=== PATIENT | female | born 1945 | race Caucasian/White ===

== ENCOUNTER → 2023-08-16 12:10 | Outpatient (REF) | payer OTHER, MEDICARE, SELFPAY | LOC: RAD 12:10 | PROVIDERS: ATTENDING PHYSICIAN Internal Medicine | DX: R06.00 Dyspnea, unspecified (principal) | CPT/HCPCS: 71046 ==

== ENCOUNTER → 2023-09-13 13:02 | Outpatient (REF) | payer MEDICARE, OTHER, SELFPAY ==
[2023-09-13 15:56] LABS: Urine Albumin Trace (Neg - Trace); Urine Bilirubin Negative (Negative); Urine Character Slightly Cloudy (Clear); Urine Color Yellow; Urine Glucose Negative (Negative); Urine Ketone Negative (Negative); Urine Leukocyte 2+ (Negative); Urine Nitrite Negative (Negative); Urine Occult Blood Negative (Negative); Urine Specific Gravity 1.015 (<1.030); Urine Urobilinogen Negative (Neg - 1+)
[2023-09-13 16:10] LABS: Urine Amorphous Seen; Urine Squamous Cell 16-20 /LPF (Few)
== END ==
LOC: HWRAD 13:02
PROVIDERS: ATTENDING PHYSICIAN Student in an Organized Health Care Education/Training Program; FAMILY PHYSICIAN Family Medicine; OTHER PHYSICIAN Specialist; REFERRING PHYSICIAN Obstetrics & Gynecology
DX: M54.50 Low back pain, unspecified (principal); S32.010G Wedge compression fracture of first lumbar vertebra, subsequent encounter for fracture with delayed healing; M54.12 Radiculopathy, cervical region; M50.31 Other cervical disc degeneration, high cervical region; N39.0 Urinary tract infection, site not specified
CPT/HCPCS: 72125; 72131; 81003; 81015; 87086

== ENCOUNTER → 2023-09-20 10:01 | Outpatient (REF) | payer MEDICARE, OTHER, SELFPAY | LOC: CLAB 10:01 | PROVIDERS: ATTENDING PHYSICIAN Obstetrics & Gynecology | DX: N39.0 Urinary tract infection, site not specified (principal) | CPT/HCPCS: 87086 ==

== ENCOUNTER → 2023-10-21 11:44 | Outpatient (REF) | payer MEDICARE, OTHER, SELFPAY ==
[2023-10-21 13:43] LABS: % Basophils 0.3 % (0-2); % Eosinophils 0.1 % (0-6); % Immature Granulocytes 0.5 % (0-0.5); % Monocytes 8.4 % (1.7-9.3); % Neutrophils 78.7 % (42.2-75.2); Absolute Immature Granulocytes 0.1 10^3/uL (0-0.05); Absolute Lymphocytes 1.3 10^3/uL (1.2-3.4); Absolute Monocytes 0.9 10^3/uL (0.1-0.6); Absolute Neutrophils 8.5 10^3/uL (1.4-6.5); Hematocrit 39.1 % (37.0-47.0); Hemoglobin 13.6 g/dL (12.0-16.0); Mean Corp Hgb Conc. 34.8 g/dL (33.0-37.0); Mean Corpuscular Hgb 29.8 pg (27.0-31.0); Mean Corpuscular Volume 85.6 fL (81.0-99.0); Mean Platelet Volume 11.3 fL (7.4-10.4); Nucleated Red Blood Cells % 0 %; Platelet Count 225 10^3/uL (130-400); Red Blood Cell Count 4.57 10^6/uL (4.20-5.40); Red Cell Dist. Width 13.6 % (11.5-14.5); White Blood Cell Count 10.8 10^3/uL (4.8-10.8)
[2023-10-21 14:00] LABS: Microalbumin, Random Urine 3.6 mg/dl (0.6-1.7); Microalbumin/creatinine Ratio 35.9 mg/g
[2023-10-21 14:02] LABS: ALT (SGPT) 11 U/L (0-35); AST (SGOT) 20 U/L (14-36); Albumin 4.8 g/dl (3.5-5.0); Alkaline Phosphatase 78 U/L (38-126); Blood Urea Nitrogen 41 mg/dl (7-17); Calcium 10.5 mg/dl (8.4-10.2); Carbon Dioxide 25 mmol/L (22-30); Chloride 103 mmol/L (98-107); Glucose 82 mg/dl (70-99); HDL Cholesterol 59 mg/dl; LDL Cholesterol, Calculated 130 mg/dl; Potassium 4.1 mmol/L (3.5-5.1); Sodium 138 mmol/L (135-145); Total Bilirubin 0.5 mg/dl (0.2-1.3); Total Cholesterol 221 mg/dl (50-199); Total Protein 7.9 g/dl (6.3-8.2); Triglyceride 161 mg/dl (10-149); Very Low Density Lipoprotein 32 mg/dl (0-30); eGFR > 60.00
== END ==
LOC: REG 11:44
PROVIDERS: ATTENDING PHYSICIAN Nurse Practitioner Family; FAMILY PHYSICIAN Family Medicine
DX: D68.69 Other thrombophilia (principal); I48.21 Permanent atrial fibrillation; E11.69 Type 2 diabetes mellitus with other specified complication; E11.9 Type 2 diabetes mellitus without complications
CPT/HCPCS: 36415; 80053; 80061; 82043; 82570; 83036; 85025

== ENCOUNTER 2023-11-01 11:25 | Emergency (ER) | payer MEDICARE, OTHER, SELFPAY ==
[2023-11-01] VITALS (9 sets, daily range): BP systolic 105–135; BP diastolic 57–100; PULSE 77–80; BMI 33.1
[2023-11-01 13:23] LABS: % Basophils 0.5 % (0-2); % Eosinophils 1.7 % (0-6); % Immature Granulocytes 0.3 % (0-0.5); % Lymphocytes 27.5 % (20.5-51.1); % Monocytes 8.4 % (1.7-9.3); % Neutrophils 61.6 % (42.2-75.2); Absolute Eosinophils 0.1 10^3/uL (0-0.7); Absolute Lymphocytes 1.8 10^3/uL (1.2-3.4); Absolute Monocytes 0.6 10^3/uL (0.1-0.6); Hematocrit 38.3 % (37.0-47.0); Hemoglobin 13.6 g/dL (12.0-16.0); Mean Corp Hgb Conc. 35.5 g/dL (33.0-37.0); Mean Corpuscular Hgb 29.9 pg (27.0-31.0); Mean Corpuscular Volume 84.2 fL (81.0-99.0); Nucleated Red Blood Cells % 0 %; Platelet Count 212 10^3/uL (130-400); Red Blood Cell Count 4.55 10^6/uL (4.20-5.40); Red Cell Dist. Width 12.7 % (11.5-14.5); White Blood Cell Count 6.6 10^3/uL (4.8-10.8)
[2023-11-01] MEDS: ANTIVERT 25 MG PO (13:36)
[2023-11-01] MEDS: NSS 1000 IV (13:37)
--- NOTE | 2023-11-01 13:40 | ED.GENMED ---
History of Present Illness
General
Chief Complaint: Weakness
Source: patient
Time Seen by Provider: 11/01/23 13:17
Travel History
Have you had any contact with someone who has COVID-19?: No
Do you have any symptoms of coronavirus? Fever > 100 degrees, chills, cough, shortness of breath, sore throat, loss of taste or smell, muscle aches, or headache?: No
History of Present Illness
History of Present Illness:
78-year-old female with past medical history of multiple cardiac complications, chronic back pain, status post multiple rib fractures and sacral fracture from an accidental fall few months ago presenting to the emergency department for evaluation
after she started to experience hot flashes, dizziness and generally feeling unwell that started in the early evening yesterday. Patient contacted her cardiology office yesterday who recommended she come to the ER for further evaluation but patient
wanted to wait the symptoms out and notes she was able to fall asleep without any difficulty but upon awakening this morning around 8:30 AM the symptoms started again albeit much less severe. Patient states currently she still feels dizzy
describing symptoms more like vertigo and associated with a pressure-like sensation in the back of her head. She denies any chest pain, shortness of breath, palpitations, diaphoresis, exertional dyspnea orthopnea, focal weakness or numbness, visual
disturbances or any other concerns. Denies any history of similar. Of note, patient recently started Mounjaro medication for diabetes about a week and a half ago. She notes that her cardiology team told her that she should not be on this so she
has not taken it again and is wondering if this may be a side effect of that medication.
Past History
Past History
ED Past Medical History: Arrthythmia, HTN, NIDDM, Valvular disease and Other (Ulcers)
ED Past Surgical History: Appendectomy, Cardiac (TAVR, pacer), Gynecological (Hysterectomy), Orthopedic (L hip replacement.) and Other (Left breast Lumpectomy)
Social History
Tobacco: Non-smoker
Alcohol: None
Drug: None
Personal:
Living: alone
Family History
Family History: Other (Nonsig.)
Review of Systems
Review of Systems
All Other Systems: ROS reviewed and negative except as documented in HPI and ROS
Phy Exam
Physical Exam
Physical Exam:
GENERAL: Alert , in no apparent distress, however when patient did sit forward to allow me to listen to her lung mora she noted her vertigo got worse
EYE: pupils equal and reactive, 4 mm bilateral, EOMI
NECK: Supple
ENT: o/p clr, mmm.
CARDIAC: Regular rate and rhythm .
LUNGS: Clear breath sounds bilaterally, no acute respiratory distress, no wheezes/rales/rhonchi
ABDOMEN: Soft, without focal tenderness, no r/g, no cvat
NEUROLOGICAL: Alert and oriented, no focal neuro deficits, moves all extremities, no sensory deficits, no dysmetria or dysarthria
SKIN: Warm and dry, skin intact.
MUSCULOSKELETAL: No edema, well perfused.
PSYCH: Normal and appropriate interaction.
Scores
Heart Failure Risk
Heart Failure Risk Score: Not Applicable
Heart Score for Chest Pain Patients
STEMI patient?: Not applicable
Withdrawal Assessment of Alcohol
Withdrawal Assessment Completed?: Not applicable
Course
Orders/Labs/Results
Orders:
Orders
11/01/23 11:34
Electrocardiogram (*1) Urgent
Reason for Study: Chest Pain
EKG- Treatment ONCE
11/01/23 13:16
Complete Blood Count/With Diff Urgent
Comprehensive Metabolic Panel Urgent
Troponin I Urgent
11/01/23 13:30
CT Head W/o Iv Contrast Urgent
Comment:
Reason For Exam: headache, vertigo
Interrogate Pacemaker- Treatment ONCE
Orthostatic VS- Treatment ONCE
0.9% Sodium Chloride 1000 ml [Nss] 1,000 ml IV BOLUS
Meclizine [Antivert] 25 mg PO NOW STA
11/01/23 15:38
Potassium Chloride [KCl] 40 meq PO NOW STA
Abnormal Lab Results
11/01/23
13:16
MPV 11.0 H fL
(7.4-10.4)
Potassium 3.2 L mmol/L
(3.5-5.1)
BUN 43 H mg/dl
(7-17)
Creatinine 1.1 H mg/dL
(0.6-1.0)
Glucose 106 H mg/dl
(70-99)
11/01/23 13:16
11/01/23 13:16
Vital Signs
Initial and Last Documented VS:
Initial Vital Signs
Temp Pulse Resp BP Pulse Ox
97.6 F 71 20 105/71 96
11/01/23 11:29 11/01/23 11:29 11/01/23 11:29 11/01/23 11:29 11/01/23 11:29
Last Documented Vital Signs
Temp Pulse Resp BP Pulse Ox
97.6 F 75 11 116/60 96
11/01/23 11:29 11/01/23 13:00 11/01/23 13:00 11/01/23 13:00 11/01/23 11:29
MDM/Problems Addressed
Differential Diagnosis Includes:
Peripheral versus central vertigo, cardiac dysrhythmia, valvular dysfunction, electrolyte disturbance, medication side effect
MDM/Problems Addressed:
78-year-old female presenting to the emergency department for evaluation of dizziness, flushing/hot flash and generally feeling unwell since last night. Symptoms do seem to be a little less persistent today although still present. She is
hemodynamically stable although blood pressure is little bit on the lower side. Orthostasis could certainly be a cause especially given her symptoms with movement. Labs have been ordered. Will check a CT of the head, orthostatics, interrogate
pacemaker. Antivert ordered for symptomatic control as well as IV fluids. Reassessment following
Chronic conditions affecting care: DM and Arrhythmia
*Pulse Oximetry
Patient hypoxic: no
*EKG
Interpreted by ED Provider?: Yes
Comparison EKG: no changes
Heart Rate: 80
Rate: normal
Rhythm: PVC's and av sequential
*Security System Installer Interpretation
Rate: normal
Rhythm: av sequential
*Critical Care Note
Total Time (30-74mins, 75-104mins- exclusive of procedures): Not Applicable
Data Reviewed
Review of Other/Old Records Reveals: Labs and Records
Source: patient and records
Patient Management
Discussion with other providers: PCP
Escalation/DeEscalation of care consider admission/obs:
On reevaluation patient notes she is feeling better. She was given a liter of IV fluids and a p.o. dose of potassium given her potassium did come back slightly low at 3.2. BUN and creatinine were slightly elevated signifying possible dehydration
which could have also been the cause of patient's lightheadedness. I did notify her primary care provider who will help ensure close follow-up within 1 to 2 days
ED Attending Note
-
Portions of this chart may have been created with voice recognition software.� Occasional wrong word or��sound alike� substitutions may have occurred due to the inherent limitations of voice recognition software.
Discharge Plan
Departure
Patient Disposition: Home (Routine Discharge)
Date of Disposition: 11/01/23
Time of Disposition: 15:39
Patient with high blood pressure during this ER visit?: No
Discharge Problem:
Dizziness, Hypokalemia
Instructions: Vertigo (a Type of Dizziness) (DC)
Prescriptions:
No Action
gabapentin 300 mg Capsule
600 mg PO HS
metformin 500 mg Tablet
1,000 mg PO BID
famotidine [Pepcid] 20 mg Tablet
40 mg PO HS
ascorbic acid (vitamin C) [Vitamin C] 500 mg Tablet
500 mg PO DAILY
repaglinide 0.5 mg Tablet
1 mg PO BID
losartan 25 mg Tablet
25 mg PO DAILY
cholecalciferol (vitamin D3) [Vitamin D3] 25 mcg (1,000 unit) Capsule
25 mcg PO DAILY
gabapentin 300 mg Capsule
300 mg PO BID@0800,1600
hydrochlorothiazide 25 mg Tablet
25 mg PO DAILY Qty: 30 0RF
metoprolol succinate 25 mg Tablet Extended Release 24 Hr
12.5 mg PO BID Qty: 30 0RF
hydrocodone-acetaminophen 5-325 mg tablet
1 tab PO Q8H PRN (Reason: severe pain)
Patient Comments:
07/22/2023: last filled 07/12/23, 30 tabs for 10 days from [facility]
esomeprazole magnesium [Nexium] 40 mg Capsule,Delayed Release(Dr/Ec)
40 mg PO DAILY
colchicine 0.6 mg tablet
0.3 mg PO BID
Xarelto 20 mg Tablet
20 mg PO QPM Qty: 30 0RF
sennosides-docusate sodium [Stool Softener-Stimulant Laxat] 8.6-50 mg Tablet
1 tab PO DAILY Qty: 10 0RF
acetaminophen [Pain Relief ES (acetaminophen)] 500 mg Tablet
1,000 mg PO Q12 Qty: 60 0RF
cyclobenzaprine 10 mg Tablet
5 mg PO TID PRN (Reason: Muscle spasm) Qty: 10 0RF
lidocaine 4 % Adhesive Patch,Medicated
1 patch topical DAILY Qty: 30 0RF
Referrals:
Radha Taylor MD [Family Provider] -
Interventions
Interventions:
*Risk Screen - Suicide Last Done: 11/01/23 11:29
*General Assessment Last Done: 11/01/23 11:29
*Neglect/Abuse Screening Last Done: 11/01/23 11:29
ED- Cardiac Assessment Last Done: 11/01/23 13:13
ED- Neurological Assessment Last Done: 11/01/23 13:13
ED- Pulmonary Assessment Last Done: 11/01/23 13:13
Discharge Date and Time
Print Language: SLOVAK
[2023-11-01 14:14] LABS: Troponin I < 0.012 ng/ml
[2023-11-01 14:15] LABS: Blood Urea Nitrogen 43 mg/dl (7-17); Estimated Creatinine Clearance 40 ml/min; Glucose 106 mg/dl (70-99)
[2023-11-01 14:16] LABS: ALT (SGPT) 11 U/L (0-35); AST (SGOT) 23 U/L (14-36); Albumin 4.4 g/dl (3.5-5.0); Alkaline Phosphatase 87 U/L (38-126); Calcium 9.8 mg/dl (8.4-10.2); Carbon Dioxide 28 mmol/L (22-30); Chloride 101 mmol/L (98-107); Potassium 3.2 mmol/L (3.5-5.1); Sodium 138 mmol/L (135-145); Total Bilirubin 0.3 mg/dl (0.2-1.3); Total Protein 7.3 g/dl (6.3-8.2)
[2023-11-01] MEDS: KCL 40 MEQ PO (15:56)
== END 2023-11-01 16:16 | disposition home or self-care (01) ==
LOC: EMR 11:25
PROVIDERS: EMERGENCY PHYSICIAN Emergency Medicine; FAMILY PHYSICIAN Family Medicine
DX: E87.6 Hypokalemia (principal); R42 Dizziness and giddiness; M54.9 Dorsalgia, unspecified; R23.2 Flushing; E11.9 Type 2 diabetes mellitus without complications; G89.29 Other chronic pain; I10 Essential (primary) hypertension; Z95.0 Presence of cardiac pacemaker; Z96.642 Presence of left artificial hip joint; Z88.5 Allergy status to narcotic agent; Z91.040 Latex allergy status
CPT/HCPCS: 99284; 96360; 93288; 70450; 80053; 84484; 85025; 93005

== ENCOUNTER 2023-12-21 20:01 | Emergency (ER) | payer MEDICARE, OTHER, SELFPAY ==
[2023-12-21 20:08] VITALS: BP 125/84
[2023-12-21 20:30] LABS: % Basophils 0.6 % (0-2); % Eosinophils 1.9 % (0-6); % Immature Granulocytes 0.3 % (0-0.5); % Lymphocytes 23.4 % (20.5-51.1); % Monocytes 8.8 % (1.7-9.3); Absolute Basophils 0.1 10^3/uL (0-0.2); Absolute Eosinophils 0.2 10^3/uL (0-0.7); Absolute Lymphocytes 2.3 10^3/uL (1.2-3.4); Absolute Monocytes 0.9 10^3/uL (0.1-0.6); Absolute Neutrophils 6.3 10^3/uL (1.4-6.5); Hematocrit 40.8 % (37.0-47.0); Hemoglobin 14.7 g/dL (12.0-16.0); Mean Corpuscular Hgb 30.9 pg (27.0-31.0); Mean Corpuscular Volume 85.7 fL (81.0-99.0); Nucleated Red Blood Cells % 0 %; Platelet Count 199 10^3/uL (130-400); Red Blood Cell Count 4.76 10^6/uL (4.20-5.40); Red Cell Dist. Width 12.4 % (11.5-14.5); White Blood Cell Count 9.8 10^3/uL (4.8-10.8)
[2023-12-21 20:51] LABS: ALT (SGPT) < 10 U/L (0-35); AST (SGOT) 22 U/L (14-36); Albumin 4.8 g/dl (3.5-5.0); Alkaline Phosphatase 89 U/L (38-126); Blood Urea Nitrogen 41 mg/dl (7-17); Calcium 10.2 mg/dl (8.4-10.2); Carbon Dioxide 25 mmol/L (22-30); Chloride 99 mmol/L (98-107); Glucose 115 mg/dl (70-99); Potassium 3.1 mmol/L (3.5-5.1); Sodium 138 mmol/L (135-145); Total Bilirubin 0.5 mg/dl (0.2-1.3); Total Protein 7.8 g/dl (6.3-8.2); eGFR 56.95
[2023-12-21 20:55] LABS: NT-proBNP 161 pg/ml; Troponin I < 0.012 ng/ml
[2023-12-21] MEDS: KCL ELIXIR 40 MEQ PO (21:43)
[2023-12-21 21:50] VITALS: BP 126/72
[2023-12-21 21:55] VITALS: BMI 33.2
[2023-12-21 22:07] LABS: Uric Acid 9.6 mg/dl (2.5-6.2)
--- NOTE | 2023-12-21 23:54 | ED.GENMED ---
History of Present Illness
General
Chief Complaint: Swelling
Source: patient and family
Time Seen by Provider: 12/21/23 20:55
Travel History
Have you had any contact with someone who has COVID-19?: No
Do you have any symptoms of coronavirus? Fever > 100 degrees, chills, cough, shortness of breath, sore throat, loss of taste or smell, muscle aches, or headache?: No
History of Present Illness
History of Present Illness:
Patient primarily here complaining of left foot pain and swelling. Started days ago. Has had some exertional shortness of breath for weeks. Some mild cough. Also some dizziness that has been going on for months. However primary reason for being
here is concerned of these left leg swelling.
Past History
Past History
ED Past Medical History: Arrthythmia, HTN, NIDDM, Valvular disease and Other (Ulcers)
ED Past Surgical History: Appendectomy, Cardiac (TAVR, pacer), Gynecological (Hysterectomy), Orthopedic (L hip replacement.) and Other (Left breast Lumpectomy)
Social History
Tobacco: Non-smoker
Alcohol: None
Drug: None
Personal:
Living: alone
Family History
Family History: Other (Nonsig.)
Review of Systems
Review of Systems
All Other Systems: Not applicable
Constitutional: Denies fever
Cardiac: Denies chest pain or syncope
Phy Exam
Physical Exam
Physical Exam:
GENERAL: Alert and oriented in no apparent distress
EYE: Orbits normal.
NECK: Supple
CARDIAC: Regular rate and rhythm without any obvious murmurs.
LUNGS: Clear breath sounds,normal
ABDOMEN: Soft, without focal tenderness or distention
NEUROLOGICAL: Alert and oriented , grossly non-focal
SKIN: Warm and dry, no rash or lesion, no discoloration, skin intact.
MUSCULOSKELETAL: Mild swelling to the left ankle and mild swelling to the left foot. However erythema at the first MTP joint with tenderness at this location only.
PSYCH: Normal and appropriate interaction.
Scores
Heart Failure Risk
Heart Failure Risk Score: Not Applicable
Course
Orders/Labs/Results
Orders:
Orders
12/21/23 20:12
ECG [Electrocardiogram (*1)] Urgent
Reason for Study: Other
Other Reason for Exam: swelling
12/21/23 20:13
EKG- Treatment ONCE
12/21/23 20:18
Complete Blood Count/With Diff Urgent
Comprehensive Metabolic Panel Urgent
NT-proBNP Urgent
Troponin I Urgent
Uric Acid Urgent
Comment: ADD ON
12/21/23 21:34
Potassium Chloride 10% Elixir [KCl Elixir] 40 meq PO NOW STA
Ankle, left 3 view CR [CR Ankle - Left Min 3 Views ] Urgent
Comment:
Reason For Exam: nontraumatic pain
Foot, Left 3 View [CR Foot - Left Min 3 Views] Urgent
Comment:
Reason For Exam: nontraumatic pain
12/21/23 21:35
Add On- LAB Urgent
Tests Added?: uric acid
US Periph Venous LOWER Ext LT Urgent
Comment:
Reason For Exam: swelling pain
12/21/23 23:53
Prednisone [Deltasone] 30 mg PO NOW STA
Abnormal Lab Results
12/21/23
20:18
MPV 11.0 H fL
(7.4-10.4)
Absolute Monos (auto) 0.9 H 10^3/uL
(0.1-0.6)
Potassium 3.1 L mmol/L
(3.5-5.1)
BUN 41 H mg/dl
(7-17)
Glucose 115 H mg/dl
(70-99)
Uric Acid 9.6 H mg/dl
(2.5-6.2)
12/21/23 20:18
12/21/23 20:18
Vital Signs
Initial and Last Documented VS:
Initial Vital Signs
Temp Pulse Resp BP Pulse Ox
98.1 F 95 20 125/84 97
12/21/23 20:08 12/21/23 20:08 12/21/23 20:08 12/21/23 20:08 12/21/23 20:08
Last Documented Vital Signs
Temp Pulse Resp BP Pulse Ox
98.1 F 91 23 126/72 96
12/21/23 20:08 12/21/23 21:52 12/21/23 21:52 12/21/23 21:50 12/21/23 21:55
*Radiology
Radiology exam reviewed: radiology read reviewed (Negative ultrasound)
*Pulse Oximetry
Patient hypoxic: no
*EKG
Interpreted by ED Provider?: Yes
Interpretation: abnormal
Comparison EKG: changes noted
Heart Rate: 94
Rate: normal
Rhythm: sinus
[place]: normal axis
Interval: normal interval
QRS Pattern: poor R-wave progression
Ischemia: non-specific ST changes
*Critical Care Note
Total Time (30-74mins, 75-104mins- exclusive of procedures): Not Applicable
Update Note
Update Note:
Chest x-ray yesterday negative. Reviewed with daughter. proBNP normal. Cardiac testing stable. Pacemaker interrogated negative. Patient's symptoms are all consistent with gout at the first MTP joint. On a DOAC. Will treat with colchicine and
a short course of steroids to follow-up.
ED Attending Note
-
Portions of this chart may have been created with voice recognition software.� Occasional wrong word or��sound alike� substitutions may have occurred due to the inherent limitations of voice recognition software.
Discharge Plan
Departure
Patient Disposition: Home (Routine Discharge)
Date of Disposition: 12/21/23
Time of Disposition: 23:57
Patient with high blood pressure during this ER visit?: No
Discharge Problem:
Gout first MTP joint left foot, Elevated uric acid level, Dyspnea with exertion/ongoing
Instructions: Shortness of Breath, Adult ED, Gout ED
Prescriptions:
New
colchicine 0.6 mg tablet
0.6 mg PO BID Qty: 20 0RF
methylprednisolone [Medrol (Joe)] 4 mg tablets,dose pack
See Rx Instructions .ROUTE .COMPLEX Qty: 21 0RF
Rx Instructions:
for 6 days
No Action
gabapentin 300 mg Capsule
600 mg PO HS
metformin 500 mg Tablet
1,000 mg PO BID
famotidine [Pepcid] 20 mg Tablet
40 mg PO HS
ascorbic acid (vitamin C) [Vitamin C] 500 mg Tablet
500 mg PO DAILY
repaglinide 0.5 mg Tablet
1 mg PO BID
losartan 25 mg Tablet
25 mg PO DAILY
cholecalciferol (vitamin D3) [Vitamin D3] 25 mcg (1,000 unit) Capsule
25 mcg PO DAILY
gabapentin 300 mg Capsule
300 mg PO BID@0800,1600
hydrochlorothiazide 25 mg Tablet
25 mg PO DAILY Qty: 30 0RF
metoprolol succinate 25 mg Tablet Extended Release 24 Hr
12.5 mg PO BID Qty: 30 0RF
hydrocodone-acetaminophen 5-325 mg tablet
1 tab PO Q8H PRN (Reason: severe pain)
Patient Comments:
07/22/2023: last filled 07/12/23, 30 tabs for 10 days from [facility]
esomeprazole magnesium [Nexium] 40 mg Capsule,Delayed Release(Dr/Ec)
40 mg PO DAILY
colchicine 0.6 mg tablet
0.3 mg PO BID
Xarelto 20 mg Tablet
20 mg PO QPM Qty: 30 0RF
sennosides-docusate sodium [Stool Softener-Stimulant Laxat] 8.6-50 mg Tablet
1 tab PO DAILY Qty: 10 0RF
acetaminophen [Pain Relief ES (acetaminophen)] 500 mg Tablet
1,000 mg PO Q12 Qty: 60 0RF
cyclobenzaprine 10 mg Tablet
5 mg PO TID PRN (Reason: Muscle spasm) Qty: 10 0RF
lidocaine 4 % Adhesive Patch,Medicated
1 patch topical DAILY Qty: 30 0RF
Referrals:
Radha Taylor MD [Family Provider] - Follow up in 2-3 days
Activity Restrictions/Additional Instructions:
Your prescriptions were sent to your pharmacy
Also follow-up with your room manager as we discussed
Interventions
Interventions:
*Risk Screen - Suicide Last Done: 12/21/23 20:08
*General Assessment Last Done: 12/21/23 20:08
*Neglect/Abuse Screening Last Done: 12/21/23 20:08
ED- Fall Risk Assessment Last Done: 12/21/23 21:55
*ED COVID-19 Vaccine History Last Done: 12/21/23 21:55
ED- Cardiac Assessment Last Done: 12/21/23 21:55
ED- Pulmonary Assessment Last Done: 12/21/23 21:55
ED-Skin Assessment Last Done: 12/21/23 21:55
Discharge Date and Time
Print Language: GERMAN
[2023-12-22] MEDS: DELTASONE 30 MG PO (00:26)
== END 2023-12-22 00:47 | disposition home or self-care (01) ==
LOC: EMR 20:01
PROVIDERS: EMERGENCY PHYSICIAN Emergency Medicine; FAMILY PHYSICIAN Family Medicine
DX: M10.9 Gout, unspecified (principal); R06.09 Other forms of dyspnea; M79.672 Pain in left foot; M79.89 Other specified soft tissue disorders; R05.9 Cough, unspecified; R79.89 Other specified abnormal findings of blood chemistry; I10 Essential (primary) hypertension; E11.9 Type 2 diabetes mellitus without complications; Z96.642 Presence of left artificial hip joint
CPT/HCPCS: 73610; 73630; 80053; 83880; 84484; 84550; 85025; 93005; 93971; 99284

== ENCOUNTER 2024-01-11 22:47 | Inpatient (IN) | payer MEDICARE, OTHER, SELFPAY ==
[2024-01-11] VITALS (21 sets, daily range): BP systolic 74–120; BP diastolic 53–86
[2024-01-11 17:30] LABS: % Basophils 0.4 % (0-2); % Eosinophils 1.8 % (0-6); % Immature Granulocytes 0.1 % (0-0.5); % Lymphocytes 27.2 % (20.5-51.1); % Monocytes 8.4 % (1.7-9.3); % Neutrophils 62.1 % (42.2-75.2); Absolute Eosinophils 0.1 10^3/uL (0-0.7); Absolute Lymphocytes 2.2 10^3/uL (1.2-3.4); Absolute Monocytes 0.7 10^3/uL (0.1-0.6); Absolute Neutrophils 4.9 10^3/uL (1.4-6.5); Hemoglobin 15.6 g/dL (12.0-16.0); Mean Corp Hgb Conc. 36.3 g/dL (33.0-37.0); Mean Corpuscular Hgb 29.9 pg (27.0-31.0); Mean Corpuscular Volume 82.5 fL (81.0-99.0); Mean Platelet Volume 11.2 fL (7.4-10.4); Nucleated Red Blood Cells % 0 %; Platelet Count 219 10^3/uL (130-400); Red Blood Cell Count 5.21 10^6/uL (4.20-5.40); Red Cell Dist. Width 12.6 % (11.5-14.5); White Blood Cell Count 7.9 10^3/uL (4.8-10.8)
[2024-01-11 17:40] LABS: Glucose - Point of Care 111 mg/dl (70-99)
[2024-01-11 17:42] LABS: INR 1.34; PT 16.6 Sec (11.4-14.6)
[2024-01-11 17:54] LABS: Troponin I < 0.012 ng/ml
[2024-01-11 17:56] LABS: ALT (SGPT) 12 U/L (0-35); AST (SGOT) 23 U/L (14-36); Albumin 4.7 g/dl (3.5-5.0); Alkaline Phosphatase 61 U/L (38-126); Blood Urea Nitrogen 33 mg/dl (7-17); Carbon Dioxide 24 mmol/L (22-30); Glucose 111 mg/dl (70-99); Total Protein 7.2 g/dl (6.3-8.2); eGFR 45.76
[2024-01-11 18:15] LABS: Chloride 96 mmol/L (98-107); Magnesium 1.5 mg/dl (1.6-2.3); Potassium 4.1 mmol/L (3.5-5.1); Sodium 133 mmol/L (135-145); Total Bilirubin 0.8 mg/dl (0.2-1.3)
[2024-01-11 19:09] LABS: TSH < 0.02 uIU/ml (0.47-4.68)
[2024-01-11 20:50] LABS: Free T4 1.55 ng/dl (0.78-2.19)
--- NOTE | 2024-01-11 21:09 | ED.GENMED ---
History of Present Illness
General
Chief Complaint: Heart Rate Problem
Source: patient and family
Time Seen by Provider: 01/11/24 17:30
History of Present Illness
History of Present Illness:
78-year-old female presents after she felt she was in a pass out at home. She took her blood pressure at home was noted to be low. Patient does have a history of atrial fibrillation. She does states she measured her heart rate at home was noted
to be elevated. She does states she was out shopping for produce today. Her daughter was upset because she was out in the heat. No chest pain. Patient did feel short of breath earlier. Patient feels a little better now but a little bit
lightheaded. Denies melena or hematochezia. Patient does arrive hypotensive.
Past History
Past History
ED Past Medical History: Arrthythmia, HTN, NIDDM, Valvular disease and Other (Ulcers)
ED Past Surgical History: Appendectomy, Cardiac (TAVR, pacer), Gynecological (Hysterectomy), Orthopedic (L hip replacement.) and Other (Left breast Lumpectomy)
Social History
Tobacco: Non-smoker
Alcohol: None
Drug: None
Personal:
Living: alone
Family History
Family History: Other (Nonsig.)
Phy Exam
Physical Exam
Physical Exam:
CONSTITUTIONAL Patient alert and oriented to person, place and time. Well-appearing. Vital signs reviewed. Hypotensive
HEAD atraumatic, normocephalic.
EYES eyelids normal to inspection, Pupils equally round and reactive to light, Extraocular muscles intact, Conjunctiva normal, Sclera normal.
NECK normal range of motion, Trachea midline, no jugular venous distention.
RESPIRATORY CHEST No respiratory distress noted, Chest expansion equal, Bilateral breath sounds clear.
CARDIOVASCULAR regular rate and rhythm, Heart sounds normal.
ABDOMEN abdomen nontender, Bowel sounds normal. No distention.
BACK normal inspection, no obvious deformities
UPPER EXTREMITY range of motion normal, Motor strength normal, no cyanosis, no edema.
LOWER EXTREMITY range of motion normal, Motor strength normal, no cyanosis, no edema.
NEURO Speech normal, No focal motor deficits, [place] coma scale 15, Memory normal, Cranial Nerves intact to screening exam.
SKIN skin warm, dry, and normal in color.
PSYCHIATRIC patient oriented to person place and time, Normal affect.
Course
Orders/Labs/Results
Orders:
Orders
01/11/24 17:21
Electrocardiogram (*1) Urgent
Reason for Study: Vertigo / Dizzy
EKG- Treatment ONCE
01/11/24 17:22
Complete Blood Count/With Diff Urgent
Comprehensive Metabolic Panel Urgent
Free T3 Urgent
Comment: ADD ON
Free T4 Urgent
Comment: ADD ON
Magnesium Urgent
PT/INR [Prothrombin Time] Urgent
Phosphorus Urgent
Comment: ADD ON
TSH Urgent
Comment: ADD ON
Troponin I Urgent
01/11/24 18:02
Add On- LAB Urgent
Tests Added?: Mg, tsh
01/11/24 18:03
CR Chest - 2 Views Urgent
Comment:
Reason For Exam: sob, hypotension
01/11/24 19:56
Add On- LAB Stat
Tests Added?: T3, free T4
01/11/24 20:43
CT Chest Pe Study Urgent
Comment:
Reason For Exam: sob, hypotension
01/11/24 21:55
Add On- LAB Urgent
Tests Added?: magnesium, phosphorous
01/11/24 21:56
Magnesium Sulfate 2 Gram/50 ml [Magnesium Sulfate] 2 gram in 50 ml IV NOW
01/11/24 22:20
Rivaroxaban [Xarelto] 20 mg PO NOW ONE
01/11/24 22:27
Admit/Transfer Patient As Directed
Co-Sign Provider:
Level of Care: Inpatient admission
Assign to:: Telemetry
Physician / Group: Love [facility]
Diagnosis: tachyarrhythmia
Reason for Telemetry: Syncope
Date to Stop Telemetry: 01/13/24
Time to Stop Telemetry: 11:00
Reason for Hospitalization: tachyarrhythmia, syncope
Expected length of stay greater than two midnights?: Yes
ELOS- Estimated Length of Stay in days: 2
I certify the patient meets the requirements for IP care: Yes
01/11/24 22:31
Code Status As Directed
Resuscitation Status: Full Code
01/11/24 23:00
Metoprolol Xl [Toprol Xl] 12.5 mg PO BID
01/13/24 11:00
DC Protocol for Telemetry ONCE
Abnormal Lab Results
01/11/24 01/11/24
17:22 17:39
MPV 11.2 H fL
(7.4-10.4)
Absolute Monos (auto) 0.7 H 10^3/uL
(0.1-0.6)
PT 16.6 H Sec
(11.4-14.6)
Sodium 133 L mmol/L
(135-145)
Chloride 96 L mmol/L
(98-107)
BUN 33 H mg/dl
(7-17)
Creatinine 1.2 H mg/dL
(0.6-1.0)
Glucose 111 H mg/dl
(70-99)
Magnesium 1.5 L mg/dl
(1.6-2.3)
TSH < 0.02 L uIU/ml
(0.47-4.68)
POC Glucose 111 H mg/dl
(70-99)
01/11/24 17:22
01/11/24 17:22
Vital Signs
Initial and Last Documented VS:
Initial Vital Signs
Temp Pulse Resp Pulse Ox
97.7 F 98 20 97
01/11/24 17:04 01/11/24 17:04 01/11/24 17:04 01/11/24 17:04
Last Documented Vital Signs
Temp Pulse Resp BP Pulse Ox
97.7 F 79 16 120/67 97
01/11/24 17:04 01/11/24 21:00 01/11/24 21:00 01/11/24 21:00 01/11/24 21:00
MDM/Problems Addressed
MDM/Problems Addressed:
Hypotension, volume depletion, tachycardia
*Radiology
Radiology exam reviewed: radiology read reviewed
*Pulse Oximetry
Patient hypoxic: no
*EKG
Interpreted by ED Provider?: Yes
Interpretation: normal
Rate: normal
Rhythm: sinus
[place]: normal axis
Ischemia: no ischemia
*Admission Nurse Interpretation
Rate: normal
Interpretation: normal
Rhythm: sinus
*Critical Care Note
Total Time (30-74mins, 75-104mins- exclusive of procedures): 30 minutes
Data Reviewed
Review of Other/Old Records Reveals: Discharge Summary (From July 2023)
Source: patient and family
Prescriptions/Medications Considered But Not Given:
Consider vasopressors but patient responded to IV fluids
Patient Management
Discussion with other providers: Hospitalist
Escalation/DeEscalation of care consider admission/obs:
78-year-old female present hypotensive. Question volume depletion. Do not suspect sepsis. Do not suspect cardiogenic shock. No evidence of pulmonary embolism. Interrogation of the pacemaker reveals that she has had multiple episodes of
tachycardia. Question whether this is sinus related to her hypotension versus a tachyarrhythmia. Admit. Likely will benefit from cardiology input as an inpatient
ED Attending Note
-
Portions of this chart may have been created with voice recognition software.� Occasional wrong word or��sound alike� substitutions may have occurred due to the inherent limitations of voice recognition software.
Discharge Plan
Departure
Patient Disposition: Admit
Date of Disposition: 01/11/24
Time of Disposition: 21:16
Admit to: Telemetry
Presentation/result/management discussed w/ accepting MD/DO: Hospitalist
Discharge Problem:
Near syncope, Non-sustained ventricular tachycardia, Tachycardia, Hypotension
Prescriptions:
No Action
gabapentin 300 mg Capsule
300 mg PO HS
metformin 500 mg Tablet
1,000 mg PO BIDWMEAL
famotidine [Pepcid] 20 mg Tablet
40 mg PO HS
ascorbic acid (vitamin C) [Vitamin C] 500 mg Tablet
500 mg PO DAILY
losartan 25 mg Tablet
25 mg PO DAILY
cholecalciferol (vitamin D3) [Vitamin D3] 25 mcg (1,000 unit) Capsule
25 mcg PO DAILY
hydrochlorothiazide 25 mg Tablet
25 mg PO DAILY Qty: 30 0RF
metoprolol succinate 25 mg Tablet Extended Release 24 Hr
12.5 mg PO BID Qty: 30 0RF
esomeprazole magnesium [Nexium] 40 mg Capsule,Delayed Release(Dr/Ec)
40 mg PO DAILY
Xarelto 20 mg Tablet
20 mg PO QPM Qty: 30 0RF
sennosides-docusate sodium [Stool Softener-Stimulant Laxat] 8.6-50 mg Tablet
1 tab PO DAILY Qty: 10 0RF
colchicine 0.6 mg tablet
0.6 mg PO BID Qty: 20 0RF
atorvastatin 10 mg tablet
10 mg PO DAILY
meclizine 25 mg tablet
12.5 mg PO TIDPRN PRN (Reason: dizziness)
omeprazole 20 mg capsule,delayed release(DR/EC)
20 mg PO BID
mirabegron [Myrbetriq] 50 mg tablet extended release 24 hr
50 mg PO DAILY
Mounjaro 5 mg/0.5 mL pen injector
5 mg SC MO
cyclobenzaprine 10 mg tablet
5 mg PO TIDPRN PRN (Reason: Muscle spasm)
acetaminophen [Pain Relief ES (acetaminophen)] 500 mg tablet
1,000 mg PO [id number] PRN (Reason: mild pain)
Referrals:
Radha Taylor MD [Family Provider] -
Interventions
Interventions:
*Risk Screen - Suicide Last Done: 01/11/24 17:59
*General Assessment Last Done: 01/11/24 17:04
*Neglect/Abuse Screening Last Done: 01/11/24 17:04
*ED COVID-19 Vaccine History Last Done: 01/11/24 20:00
ED- Cardiac Assessment Last Done: 01/11/24 17:20
ED- Pulmonary Assessment Last Done: 01/11/24 17:20
Discharge Date and Time
Print Language: [id number]
[2024-01-11 21:20] LABS: Free T3 3.58 pg/ml (2.77-5.27)
--- NOTE | 2024-01-11 21:45 | HPS.HSE ---
Addendum entered and electronically signed by Love Chi MD 01/11/24 22:58:
RIVER
-suspect pre-renal
-IVF as below
Original Note:
Family Physician
-
Family Physician: Radha Taylor
Chief Complaint
-
pre-syncope
History of Present Illness
Ms. Monet Roman is a 78 yo woman with hx HTN, NIDDM, lumbar laminectomy/fusion spine stimulator, s/p TAVR (2022), CHB s/p PPM with complication pericardial tamponade s/p drainage (2022), paroxysmal afib on Xarelto, recent ER visit 12/20 diagnosed
with gout and discharged on steroids and colchicine, presents to the ER after an episode of near syncope.
Patient states that she was out with friends today sitting in the heat. When she walked to her apartment she felt off and short of breath. She fell asleep in her recliner. She describes feelings of vertigo which is a chronic issue for her.
Collateral history obtained by daughter at bedside who states that she has cameras set up in her mom's apartment because she is a fall risk. She saw that her mom was breathing fast while asleep. Additionally, the cardiology clinic called her
because her pacer had alarmed that her heart rate was going fast. Daughter went to patient's apartment and brought her to the ER.
Daughter is concerned that Mounjaro is causing patient not to eat and drink enough. Patient states she had a light breakfast and likely didn't drink enough today in the heat. She denies chest pain. Currently denies shortness of breath, states has
only felt it in the heat. No fevers/chills. No nausea/vomiting/diarrhea. She was seen in the ER for gout earlier this month and swelling resolved after 3 days, she has still been taking colchicine twice a day.
Medical History
Past Medical History
Past Medical History: Reports Other
Additional Past Medical History:
pericardial effusion, complete heart block status post pacemaker placement, essential hypertension, type 2 diabetes, lumbar spinal stenosis stimulator, pericarditis, aortic stenosis status post TAVR
Past Surgical History: Reports Other
Additional Past Surgical History:
TVAR
Pacemaker placement
Social History
Tobacco: Non-smoker
Alcohol: None
Drug: None
Living: With Family
Family History
Family History: Not pertinent
Allergies / Home Medications
Allergies reflects when Allergies were last updated in [facility].
Home Medications with original date entered in [facility]
Allergy/Medication List:
Allergies
Allergy/AdvReac Type Severity Reaction Status Date / Time
codeine Allergy Severe Verified 01/11/24 17:09
Vomiting
latex Allergy Burning, Verified 01/11/24 17:09
Itching,
Blisters
oxycodone Allergy Severe Verified 01/11/24 17:09
Vomiting
Home Medications
ascorbic acid (vitamin C) 500 mg tablet (Vitamin C) 500 mg PO DAILY Supplement 05/14/23
cholecalciferol (vitamin D3) 25 mcg (1,000 unit) capsule (Vitamin D3) 25 mcg PO DAILY Supplement 05/14/23
famotidine 20 mg tablet (Pepcid) 40 mg PO HS 05/14/23
gabapentin 300 mg capsule 300 mg PO HS rls 05/14/23
losartan 25 mg tablet 25 mg PO DAILY Blood Pressure 05/14/23
metformin 500 mg tablet 1,000 mg PO BIDWMEAL Diabetes 05/14/23
hydrochlorothiazide 25 mg tablet 25 mg PO DAILY #30 tabs 05/25/23
metoprolol succinate 25 mg tablet,extended release 24 hr 12.5 mg (1/2 x 25 mg) PO BID #30 tabs 05/25/23
esomeprazole magnesium 40 mg capsule,delayed release (Nexium) 40 mg PO DAILY 07/22/23
rivaroxaban 20 mg tablet (Xarelto) 20 mg PO QPM #30 tabs 07/26/23
sennosides 8.6 mg-docusate sodium 50 mg tablet (Stool Softener-Stimulant Laxative) 1 tab PO DAILY #10 tabs 07/26/23
colchicine 0.6 mg tablet 0.6 mg PO BID #20 tabs 12/21/23
acetaminophen 500 mg tablet (Pain Relief Extra Strength (acetaminophen)) 1,000 mg PO [id number] PRN mild pain 01/11/24
atorvastatin 10 mg tablet 10 mg PO DAILY 01/11/24
cyclobenzaprine 10 mg tablet 5 mg PO TIDPRN PRN Muscle spasm 01/11/24
meclizine 25 mg tablet 12.5 mg PO TIDPRN PRN dizziness 01/11/24
mirabegron 50 mg tablet,extended release 24 hr (Myrbetriq) 50 mg PO DAILY 01/11/24
omeprazole 20 mg capsule,delayed release 20 mg PO BID 01/11/24
tirzepatide 5 mg/0.5 mL subcutaneous pen injector (Mounjaro) 5 mg SC MO 01/11/24
Review of Systems
-
History Source: Patient
A 12 point ROS was completed and negative except as noted: Yes
Physical Exam
Vital Signs
Vital Signs
Temp Pulse Resp BP Pulse Ox
97.7 F 79 16 120/67 97
01/11/24 17:04 01/11/24 21:00 01/11/24 21:00 01/11/24 21:00 01/11/24 21:00
Physical Exam
General: No Apparent Distress, Comfortable and Conversant
HEENT: PERRLA
Respiratory: Clear; No Wheezes
Cardiac: S1/S2 and Regular Rhythm
GI: Soft and Non Tender
Musculoskeletal: No Edema
Skin: Warm and Dry; No Rash
Neuro: AO x 3
Psych: Calm
Laboratory Results
-
01/11/24 17:22
01/11/24 17:22
Laboratory Results
PT 16.6 Sec (11.4-14.6) H 01/11/24 17:22
INR 1.34 01/11/24 17:22
Total Bilirubin 0.8 mg/dl (0.2-1.3) 01/11/24 17:22
AST 23 U/L (14-36) 01/11/24 17:22
ALT 12 U/L (0-35) 01/11/24 17:22
Alkaline Phosphatase 61 U/L (38-126) 01/11/24 17:22
Troponin I < 0.012 ng/ml 01/11/24 17:22
Data Reviewed
-
Diagnostic Radiology: Report Reviewed by me
Lab Data: Labs Reviewed by me
Impression/Plan
-
Ms. Monet Roman is a 78 yo woman with hx HTN, NIDDM, lumbar laminectomy/fusion spine stimulator, s/p TAVR (2022), CHB s/p PPM with complication pericardial tamponade s/p drainage (2022), paroxysmal afib on Xarelto, recent ER visit 12/20 diagnosed
with gout and discharged on steroids and colchicine, presents to the ER after an episode of near syncope.
Triage VS: T 97.7, P 98, RR 20, SpO2 97%, BP 74/53 responsive to IVF
LABS: WBC 7.9, Hg 15.6, PLT 219, Na 133, K+ 4.1, Mag 1.5, Cl 96, Cr 1.2 (baseline ~0.9), Glucose 111
Trop < 0.012
EKG: a sensed v-paced @ 94, no sig ST changes
CTA
IMPRESSION:
1. No evidence of pulmonary embolism.
2. No significant acute abnormality identified in the chest, as described above.
Pre-syncope
Hypotension
Tachyarrhythmia/ SVT/ Hx paroxysmal atrial fibrillation
Hx Essential Hypertension
-s/p PPM interrogation in the ER with multiple episodes SVT with some NSVT (faxed report obtained in chart). CTA without PE
-patient hypotensive 74/53 upon arrival responded to IVF with most recent BP systolic 120's
-concern that dehydration triggered arrhythmias as patient reports eating and drinking little with time spent in extreme heat
-admit patient to telemetry
-1L IVF overnight
-TTE
-cardiology consult tomorrow AM
-continue CLOCK REPAIRER Xarelto
-hold CLOCK REPAIRER Losartan and HCTZ
-will resume CLOCK REPAIRER Metoprolol given current normal BP
-Keep K > 4, Mag > 2
s/p TAVR
Hypomagnesemia
-replete
Subclinical Hyperthyroidism
-TSH < 0.02 with nl T4 and T3 levels
-team to run case by Endocrinology tomorrow morning
NIDDM
-hold CLOCK REPAIRER Metformin
-hold CLOCK REPAIRER Mounjaro - daughter concerned this is causing patient to not eat and drink enough; patient does not want to stop this medication prescribed by her Airport Utility Worker
-ISS low
GERD
-CLOCK REPAIRER PPI, pepcid
Vertigo
-CLOCK REPAIRER Meclizine PRN
Gout
-patient was continuing to take colchicine prescribed last ER visit (12/20). Given Gout now resolved, will hold further colchicine
DVT PPx CLOCK REPAIRER Xarelto
FULL CODE
76 minutes spent on patient evaluation, medical decision making, coordination of care
[2024-01-11 22:36] LABS: Phosphorus 3.3 mg/dl (2.5-4.5)
[2024-01-12] VITALS (8 sets, daily range): BP systolic 105–154; BP diastolic 71–88; PULSE 80–89; O2SAT 96–99; BMI 31.9
[2024-01-12 00:13] LABS: Glucose - Point of Care 128 mg/dl (70-99)
[2024-01-12] MEDS: LR 1000 IV (00:17)
[2024-01-12] MEDS: NEURONTIN 300 MG PO (00:18)
[2024-01-12] MEDS: PEPCID 20 MG PO (00:18)
[2024-01-12] MEDS: XARELTO 20 MG PO (00:18)
[2024-01-12] MEDS: PROTONIX 40 MG PO ×2 (00:18→08:36)
[2024-01-12] MEDS: MAGNESIUM SULFATE 50 IV (00:35)
[2024-01-12] MEDS: TYLENOL 650 MG PO (01:41)
[2024-01-12 07:12] LABS: Glucose - Point of Care 127 mg/dl (70-99)
[2024-01-12 07:35] LABS: % Basophils 0.6 % (0-2); % Eosinophils 4.6 % (0-6); % Immature Granulocytes 0.4 % (0-0.5); % Lymphocytes 31.8 % (20.5-51.1); % Monocytes 8.7 % (1.7-9.3); % Neutrophils 53.9 % (42.2-75.2); Absolute Eosinophils 0.3 10^3/uL (0-0.7); Absolute Lymphocytes 1.7 10^3/uL (1.2-3.4); Absolute Monocytes 0.5 10^3/uL (0.1-0.6); Absolute Neutrophils 2.9 10^3/uL (1.4-6.5); Hematocrit 37.1 % (37.0-47.0); Hemoglobin 13.6 g/dL (12.0-16.0); Mean Corp Hgb Conc. 36.7 g/dL (33.0-37.0); Mean Corpuscular Hgb 29.8 pg (27.0-31.0); Mean Corpuscular Volume 81.4 fL (81.0-99.0); Mean Platelet Volume 10.9 fL (7.4-10.4); Nucleated Red Blood Cells % 0 %; Platelet Count 159 10^3/uL (130-400); Red Blood Cell Count 4.56 10^6/uL (4.20-5.40); Red Cell Dist. Width 12.4 % (11.5-14.5); White Blood Cell Count 5.4 10^3/uL (4.8-10.8)
--- NOTE | 2024-01-12 07:51 | CON.CAR ---
Addendum entered and electronically signed by Tiburcio Montenegro MD 01/12/24 12:08:
I saw and examined the patient.
The DINKING MACHINE OPERATOR's note was reviewed and I agree with the note.
Comment: 78 y/o female with s/p TAVR 2022, hypertension, HFpEF, PUD, neurostimulator in place, LBBB, PAF on Xarelto, hx pericardial effusion/tamponade with pericardiocentesis, DM, CHB s/p pacemaker 2022 who is here for evaluation of episode of
dizziness and diaphoresis yesterday. She was found to have SVT on device interrogation, likely cause for her symptoms.
- Increase metoprolol
- Otherwise, OK to be d/c with outpt follow up.
Original Note:
Consultation
Consultation Request
Date/Time Consultation Requested: 01/11/24 2337
Date/Time Consultation Performed: 01/12/24 0800
Requesting Provider: Dr. Chi
Performing Provider: Bernie BASURTO for Dr. Montenegro
Reason for Consultation: SVT, pre-syncope
Medical History
-
Chief Complaint: pre-syncope
History of Present Illness:
78 y/o female with s/p TAVR 2022, hypertension, HFpEF, PUD, neurostimulator in place, LBBB, PAF on Xarelto, hx pericardial effusion/tamponade with pericardiocentesis, DM, CHB s/p pacemaker 2022 who is here for evaluation of episode of dizziness
and diaphoresis yesterday. HR on her home monitor in 160's. On arrival to ER, BP was low and labs suggestive of volume depletion. She does note being outside yesterday in the heat and not having had much fluid. She got a liter of IVF and is feeling
improved. Tele is stable. Denies any CP or SOB. Mag low and replaced. She wonders if Mounjaro, which is relatively new for her is contributing. Her pacemaker interrogation shows occasional brief NSVT episodes (about 1 second), but multiple prolonged
SVT episodes. She is feeling and looking well at the time of my assessment.
Past Medical History
Past Medical History: Arrhythmias, CHF, HTN, NIDDM and Valvular Disease
Social History
Tobacco: Non-Smoker
Family History
Family History: Reviewed & Not Pertinent
Allergies / Home Medications
Allergy/AdvReac Type Severity Reaction Status Date / Time
codeine Allergy Severe Verified 01/11/24 17:09
Vomiting
latex Allergy Burning, Verified 01/11/24 17:09
Itching,
Blisters
oxycodone Allergy Severe Verified 01/11/24 17:09
Vomiting
�Medication �Instructions �Recorded �Confirmed �Type
ascorbic acid (vitamin C) 500 mg 500 mg PO DAILY Supplement 05/14/23 01/11/24 History
tablet (Vitamin C)
cholecalciferol (vitamin D3) 25 25 mcg PO DAILY Supplement 05/14/23 01/11/24 History
mcg (1,000 unit) capsule (Vitamin
D3)
famotidine 20 mg tablet (Pepcid) 40 mg PO HS Gastrointestinal Issue 05/14/23 01/11/24 History
gabapentin 300 mg capsule 300 mg PO HS rls 05/14/23 01/11/24 History
losartan 25 mg tablet 25 mg PO DAILY Blood Pressure 05/14/23 01/11/24 History
metformin 500 mg tablet 1,000 mg PO BIDWMEAL Diabetes 05/14/23 01/11/24 History
metoprolol succinate 25 mg 12.5 mg (1/2 x 25 mg) PO BID #30 05/25/23 01/11/24 Rx
tablet,extended release 24 hr tabs
esomeprazole magnesium 40 mg 40 mg PO DAILY Gastrointestinal 07/22/23 01/11/24 History
capsule,delayed release (Nexium) Issue
rivaroxaban 20 mg tablet (Xarelto) 20 mg PO QPM #30 tabs 07/26/23 01/11/24 Rx
acetaminophen 500 mg tablet (Pain 1,000 mg PO [id number] PRN mild pain 01/11/24 01/11/24 History
Relief Extra Strength
(acetaminophen))
atorvastatin 10 mg tablet 10 mg PO DAILY High Cholesterol 01/11/24 01/11/24 History
cyclobenzaprine 10 mg tablet 5 mg PO TIDPRN PRN Muscle spasm 01/11/24 01/11/24 History
meclizine 25 mg tablet 12.5 mg PO TIDPRN PRN dizziness 01/11/24 01/11/24 History
mirabegron 50 mg tablet,extended 50 mg PO DAILY Urinary Issue 01/11/24 01/11/24 History
release 24 hr (Myrbetriq)
omeprazole 20 mg capsule,delayed 20 mg PO BID Gastrointestinal Issue 01/11/24 01/11/24 History
release
tirzepatide 5 mg/0.5 mL 5 mg SC MO Diabetes 01/11/24 01/11/24 History
subcutaneous pen injector
(Mounjaro)
colchicine 0.6 mg tablet 0.6 mg PO BID Gout 01/12/24 01/11/24 History
hydrochlorothiazide 25 mg tablet 25 mg PO DAILY Fluid 01/12/24 01/11/24 History
Retention/Swelling
sennosides 8.6 mg-docusate sodium 1 tab PO DAILY Constipation 01/12/24 01/11/24 History
50 mg tablet (Stool
Softener-Stimulant Laxative)
Review of Systems
-
History Source: Patient
All other systems: Negative unless noted
Neurological: Dizzy (and sweaty episodes as described)
Physical Exam
Vital Signs
Temp Pulse Resp BP Pulse Ox
98.0 F 84 18 120/71 98
01/12/24 03:41 01/12/24 03:41 01/12/24 03:41 01/12/24 03:41 01/12/24 03:41
Lab Results
01/12/24 07:05
Troponin I < 0.012 ng/ml 01/11/24 17:22
Physical Exam
General: Well Developed, Well Nourished and No Apparent Distress
HEENT: Normocephalic and Anicteric
Respiratory: Clear and Non Labored Respirations
Cardiac: Regular Rhythm
Musculoskeletal: No Edema
Skin: Warm and Dry
Neuro: AO x 3
Psych: Calm
Impression / Plan
-
pSVT:
-mag replaced, will replace K
-volume depletion suspected and she is now s/p IVF
-we reviewed vagal maneuvers, staying appropriately hydrated
-echo ordered
-TSH abnormal and internal medicine to discuss with endocrine
-increase BB and follow tele. Remain off HCTZ at this time.
-tele stable
NSVT:
-very brief on interrogation from yesterday (1 second)
-checking echo
-replaced mag, replace K
Hypotension:
-resolved s/p IVF
-losartan and HCTZ held- likely remain off the latter
-increase BB and follow
PAF:
-continue BB and Xarelto
Pacemaker:
-battery/leads stable
-follow tele
Hx TAVR, HFpEF, pericardial effusion:
-checking echo
-not overloaded
Data Reviewed
-
EKG: Tracing Personally Visualized and interpreted (, HOST COORDINATOR 94 BPM)
Radiology: Report Reviewed by me (CXR: No acute cardiopulmonary process.)
Medical Tests (Nuc Med, Echo etc): Report Reviewed by me ( Echo 05/22/23: Estimated ejection fraction 65-70%. S/P TAVR with peak/mean gradients across the aortic valve at 19/12 mmHg. No aortic regurgitation is seen. Large pericardial effusion.
Resolved on follow-up echo.)
Labs: Labs Reviewed by me
[2024-01-12 07:57] LABS: Blood Urea Nitrogen 24 mg/dl (7-17); Calcium 9.5 mg/dl (8.4-10.2); Carbon Dioxide 25 mmol/L (22-30); Chloride 99 mmol/L (98-107); Estimated Creatinine Clearance 49 ml/min; Glucose 101 mg/dl (70-99); Potassium 3.2 mmol/L (3.5-5.1); Sodium 135 mmol/L (135-145); eGFR > 60.00
[2024-01-12 07:58] LABS: Troponin I < 0.012 ng/ml
[2024-01-12 08:29] LABS: Glycohemoglobin (HgbA1c) 5.8 % (4.0-5.6)
[2024-01-12] MEDS: TOPROL XL 12.5 MG PO ×2 (08:36→10:15)
[2024-01-12] MEDS: MYRBETRIQ EXTENDED RELEASE 50 MG PO (08:37)
[2024-01-12] MEDS: LIPITOR 10 MG PO (08:37)
--- NOTE | 2024-01-12 10:10 | W.PN.HOSP.TC ---
Addendum entered and electronically signed by Scotty Salguero DO 01/12/24 13:36:
Orthostatics negative.
Echocardiogram shows LVEF 65 to 70%, normal RV size and function, mild to moderate MS.
Cardiology okay with discharge. Outpatient follow-up.
Original Note:
Today's Communication/Plan
-
Orthostatic vitals
Echocardiogram
Possible discharge
Assessment / Plan
Assessment / Plan
Gen-AAOx3, NAD
HEENT-NC, AT, anicteric, clear oral mm
Neck-supple
CV-reg, no M, +S1/S2
Lungs-clear B/L
Abd-soft, NT, ND
Ext-no edema
Musculoskeletal-no cyanosis, clubbing
Skin-warm and dry
Neuro-grossly non-focal
Psych-calm, cooperative
Paroxysmal SVT -presentation with near syncope. Component of volume depletion contributing. Check orthostatic vitals. Discussed with nursing.
Metoprolol dose increased by cardiology. Echocardiogram pending.
Hypokalemia -continue repletion. Hypomagnesemia on presentation, resolved.
NSVT -brief episode when device was interrogated.
Volume depletion/hypotension -improved with IV fluids.
Hyponatremia -likely multifactorial etiology. Will discontinue hydrochlorothiazide and not resume on discharge. Discussed with patient.
Abnormal thyroid labs -low TSH with normal free T4, free T3. Suspect sick euthyroid syndrome. Would repeat thyroid labs in 3 to 4 weeks with primary care doctor.
Paroxysmal atrial fibrillation -continue Xarelto.
History of complete heart block -pacemaker in place.
hyperlipidemia -on atorvastatin.
Chronic heart failure preserved EF
Aortic stenosis - TAVR
Hx pericardial effusion/tamponade -treated with pericardiocentesis 2022.
Essential hypertension -hypotension resolved.
DM2 without hyperglycemia -hemoglobin A1c 5.8%. On Mounjaro and metformin at home. Can resume on discharge.
Lumbar laminectomy/fusion -with spine stimulator
GERD
History of vertigo
Hx gout -on colchicine.
Full code
Dispo -possible discharge later today if cleared by cardiology.
Anticipated Discharge: Today
Subjective/Interval History
-
Date of Service: January 12, 2024
Patient seen and examined. Feeling better. No complaints. Eager to go home.
Objective Data
-
Labs:
Laboratory Results
01/12/24
07:05
WBC 5.4
Hgb 13.6
Hct 37.1
Plt Count 159 D
Sodium 135
Potassium 3.2 L
Chloride 99
Carbon Dioxide 25
BUN 24 H
Creatinine 0.9
Glucose 101 H
Calcium 9.5
Vital Signs:
Vital Signs
Temp Pulse Resp BP Pulse Ox
97.8 F 84 18 129/74 97
01/12/24 08:15 01/12/24 08:15 01/12/24 08:15 01/12/24 08:15 01/12/24 08:15
Review of Systems
-
History Source: Patient
All other systems: Reviewed and negative
[2024-01-12] MEDS: KCL 40 MEQ PO (10:15)
--- NOTE | 2024-01-12 11:38 | CM ---
CM met [facility] Monet Roman to complete IA. Chart reviewed.
Monet is an 78yo woman who lives alone in a [place] community in an apartment. She is (I) amb (uses a cane due to vertigo), (I) ADLs, drives locally. Her daughter lives in the area and helps her with housekeeping and manages her medical
appointments/prescriptions.
[facility] and has been referred back to them via [facility].
Plan: Discharge to home with [facility]. Daughter will provide transportation home.
PCP: Radha Olsen
Pharmacy: [facility]
[2024-01-12 12:18] LABS: Glucose - Point of Care 110 mg/dl (70-99)
--- NOTE | 2024-01-12 13:35 | W.DS.TRANS ---
DC Summary - [employer]ingle [employer]
-
Discharge Instructions:
Discharge Diagnosis/Procedures Supraventricular tachycardia, volume depletion,
hypotension
Diet Diabetic, Carb Controlled
Activity As tolerated
Driving Restrictions As prior to admission
Bathing Restrictions None
Blood Work Your primary care doctor will need to check
thyroid blood work in 3 to 4 weeks
Instructions:
Stand-Alone Forms:
Changes to Home Medications: Yes
Discharge Medications:
DC Medications w/original date entered in [employer]
ascorbic acid (vitamin C) 500 mg tablet (Vitamin C) 500 mg PO DAILY Supplement 05/14/23
cholecalciferol (vitamin D3) 25 mcg (1,000 unit) capsule (Vitamin D3) 25 mcg PO DAILY Supplement 05/14/23
famotidine 20 mg tablet (Pepcid) 40 mg PO HS Gastrointestinal Issue 05/14/23
gabapentin 300 mg capsule 300 mg PO HS rls 05/14/23
losartan 25 mg tablet 25 mg PO DAILY Blood Pressure 05/14/23
metformin 500 mg tablet 1,000 mg PO BIDWMEAL Diabetes 05/14/23
esomeprazole magnesium 40 mg capsule,delayed release (Nexium) 40 mg PO DAILY Gastrointestinal Issue 07/22/23
rivaroxaban 20 mg tablet (Xarelto) 20 mg PO QPM #30 tabs 07/26/23
acetaminophen 500 mg tablet (Pain Relief Extra Strength (acetaminophen)) 1,000 mg PO [id number] PRN mild pain 01/11/24
atorvastatin 10 mg tablet 10 mg PO DAILY High Cholesterol 01/11/24
cyclobenzaprine 10 mg tablet 5 mg PO TIDPRN PRN Muscle spasm 01/11/24
meclizine 25 mg tablet 12.5 mg PO TIDPRN PRN dizziness 01/11/24
mirabegron 50 mg tablet,extended release 24 hr (Myrbetriq) 50 mg PO DAILY Urinary Issue 01/11/24
omeprazole 20 mg capsule,delayed release 20 mg PO BID Gastrointestinal Issue 01/11/24
tirzepatide 5 mg/0.5 mL subcutaneous pen injector (Mounjaro) 5 mg SC MO Diabetes 01/11/24
colchicine 0.6 mg tablet 0.6 mg PO BID Gout 01/12/24
metoprolol succinate 25 mg tablet,extended release 24 hr 25 mg PO BID #60 tabs 01/12/24
sennosides 8.6 mg-docusate sodium 50 mg tablet (Stool Softener-Stimulant Laxative) 1 tab PO DAILY Constipation 01/12/24
Home Medication Changes
Metoprolol dose increased to 25 mg twice daily.
Pending Results: No
== END 2024-01-12 17:02 | disposition home health service (06) | DRG 309 ==
LOC: 4 EAST ACU 22:47
PROVIDERS: ADMITTING PHYSICIAN Student in an Organized Health Care Education/Training Program; ATTENDING PHYSICIAN Hospitalist; EMERGENCY PHYSICIAN Emergency Medicine; FAMILY PHYSICIAN Family Medicine; OTHER PHYSICIAN Internal Medicine Cardiovascular Disease
PROC: 4B02XSZ Measurement of Cardiac Pacemaker, External Approach (ICD-10-PCS; 2024-01-11)
DX: I47.10 Supraventricular tachycardia, unspecified (principal); E87.1 Hypo-osmolality and hyponatremia; I50.32 Chronic diastolic (congestive) heart failure; E86.0 Dehydration; I95.9 Hypotension, unspecified; E11.9 Type 2 diabetes mellitus without complications; I48.0 Paroxysmal atrial fibrillation; M10.9 Gout, unspecified; M48.061 Spinal stenosis, lumbar region without neurogenic claudication; E07.81 Sick-euthyroid syndrome; I11.0 Hypertensive heart disease with heart failure; I47.20 Ventricular tachycardia, unspecified; E83.42 Hypomagnesemia; K21.9 Gastro-esophageal reflux disease without esophagitis; R42 Dizziness and giddiness; I44.7 Left bundle-branch block, unspecified; I05.0 Rheumatic mitral stenosis; E87.6 Hypokalemia; E78.5 Hyperlipidemia, unspecified; I44.2 Atrioventricular block, complete; Z95.2 Presence of prosthetic heart valve; Z95.0 Presence of cardiac pacemaker; Z79.01 Long term (current) use of anticoagulants; Z79.84 Long term (current) use of oral hypoglycemic drugs
CPT/HCPCS: 71046; 71275; 80048; 80053; 82962; 83036; 83735; 84100; 84439; 84443; 84481; 84484; 85025; 85610; 93005; 93288; 93306; 97162; 97166; 99291; Q9967

== ENCOUNTER → 2024-01-31 09:14 | Outpatient (REF) | payer MEDICARE, OTHER, SELFPAY ==
[2024-01-31 11:09] LABS: Albumin 4.6 g/dl (3.5-5.0); Blood Urea Nitrogen 21 mg/dl (7-17); Calcium 10.5 mg/dl (8.4-10.2); Carbon Dioxide 25 mmol/L (22-30); Chloride 101 mmol/L (98-107); Glucose 99 mg/dl (70-99); Phosphorus 4.6 mg/dl (2.5-4.5); Potassium 4.5 mmol/L (3.5-5.1); Sodium 139 mmol/L (135-145); eGFR > 60.00
== END ==
LOC: REG 09:14
PROVIDERS: ATTENDING PHYSICIAN Internal Medicine Cardiovascular Disease; FAMILY PHYSICIAN Family Medicine
DX: I10 Essential (primary) hypertension (principal); I50.30 Unspecified diastolic (congestive) heart failure; I48.0 Paroxysmal atrial fibrillation
CPT/HCPCS: 36415; 80069

== ENCOUNTER → 2024-02-07 08:47 | Outpatient (REF) | payer MEDICARE, OTHER, SELFPAY ==
[2024-02-07 10:27] LABS: Albumin 4.5 g/dl (3.5-5.0); Blood Urea Nitrogen 25 mg/dl (7-17); Calcium 10.6 mg/dl (8.4-10.2); Carbon Dioxide 26 mmol/L (22-30); Chloride 100 mmol/L (98-107); Glucose 92 mg/dl (70-99); Phosphorus 4.2 mg/dl (2.5-4.5); Potassium 4.5 mmol/L (3.5-5.1); Sodium 137 mmol/L (135-145); eGFR > 60.00
== END ==
LOC: REG 08:47
PROVIDERS: ATTENDING PHYSICIAN Internal Medicine Cardiovascular Disease; FAMILY PHYSICIAN Family Medicine
DX: I10 Essential (primary) hypertension (principal); I50.30 Unspecified diastolic (congestive) heart failure; I48.0 Paroxysmal atrial fibrillation
CPT/HCPCS: 36415; 80069

== ENCOUNTER → 2024-02-14 09:55 | Outpatient (REF) | payer MEDICARE, OTHER, SELFPAY ==
[2024-02-14 12:41] LABS: Albumin 4.8 g/dl (3.5-5.0); Blood Urea Nitrogen 36 mg/dl (7-17); Calcium 10.4 mg/dl (8.4-10.2); Carbon Dioxide 24 mmol/L (22-30); Chloride 110 mmol/L (98-107); Glucose 95 mg/dl (70-99); Phosphorus 4.6 mg/dl (2.5-4.5); Potassium 4.2 mmol/L (3.5-5.1); Sodium 145 mmol/L (135-145); eGFR 56.95
== END ==
LOC: HWLAB 09:55
PROVIDERS: ATTENDING PHYSICIAN Internal Medicine Cardiovascular Disease; FAMILY PHYSICIAN Family Medicine
DX: I10 Essential (primary) hypertension (principal); I50.30 Unspecified diastolic (congestive) heart failure; I48.0 Paroxysmal atrial fibrillation
CPT/HCPCS: 36415; 80069

== ENCOUNTER → 2024-03-30 14:01 | Outpatient (REF) | payer MEDICARE, OTHER, SELFPAY ==
[2024-03-30 15:35] LABS: ALT (SGPT) 17 U/L (0-35); AST (SGOT) 35 U/L (14-36); Albumin 4.4 g/dl (3.5-5.0); Alkaline Phosphatase 89 U/L (38-126); Blood Urea Nitrogen 25 mg/dl (7-17); Calcium 10.5 mg/dl (8.4-10.2); Carbon Dioxide 23 mmol/L (22-30); Chloride 110 mmol/L (98-107); Glucose 79 mg/dl (70-99); HDL Cholesterol 55 mg/dl; LDL Cholesterol, Calculated 22 mg/dl; Potassium 4.3 mmol/L (3.5-5.1); Sodium 147 mmol/L (135-145); Total Bilirubin 0.5 mg/dl (0.2-1.3); Total Cholesterol 93 mg/dl (50-199); Total Protein 6.9 g/dl (6.3-8.2); Triglyceride 80 mg/dl (10-149); Very Low Density Lipoprotein 16 mg/dl (0-30); eGFR > 60.00
[2024-03-31 09:57] LABS: Glycohemoglobin (HgbA1c) 5.3 % (4.0-5.6)
== END ==
LOC: REG 14:01
PROVIDERS: ATTENDING PHYSICIAN Nurse Practitioner Family; FAMILY PHYSICIAN Family Medicine
DX: E11.9 Type 2 diabetes mellitus without complications (principal)
CPT/HCPCS: 36415; 80053; 80061; 83036

== ENCOUNTER → 2024-04-12 10:59 | Outpatient (REF) | payer MEDICARE, OTHER, SELFPAY ==
[2024-04-12 12:27] LABS: Erythrocyte Sed Rate 9 mm/hour (0-20)
[2024-04-12 12:35] LABS: % Eosinophils 3.1 % (0-6); % Lymphocytes 32.4 % (20.5-51.1); % Neutrophils 54.5 % (42.2-75.2); Absolute Basophils 0.1 10^3/uL (0-0.2); Absolute Eosinophils 0.2 10^3/uL (0-0.7); Absolute Monocytes 0.6 10^3/uL (0.1-0.6); Absolute Neutrophils 3.3 10^3/uL (1.4-6.5); Hematocrit 42.1 % (37.0-47.0); Hemoglobin 14.3 g/dL (12.0-16.0); Mean Corpuscular Hgb 29.4 pg (27.0-31.0); Mean Corpuscular Volume 86.6 fL (81.0-99.0); Mean Platelet Volume 11.3 fL (7.4-10.4); Nucleated Red Blood Cells % 0 %; Platelet Count 233 10^3/uL (130-400); Red Blood Cell Count 4.86 10^6/uL (4.20-5.40); Red Cell Dist. Width 14.1 % (11.5-14.5); White Blood Cell Count 6.1 10^3/uL (4.8-10.8)
[2024-04-12 12:50] LABS: ALT (SGPT) 16 U/L (0-35); AST (SGOT) 30 U/L (14-36); Albumin 4.7 g/dl (3.5-5.0); Blood Urea Nitrogen 24 mg/dl (7-17); Calcium 10.1 mg/dl (8.4-10.2); Carbon Dioxide 19 mmol/L (22-30); Chloride 108 mmol/L (98-107); Glucose 87 mg/dl (70-99); Potassium 4.4 mmol/L (3.5-5.1); Sodium 145 mmol/L (135-145); Total Bilirubin 0.7 mg/dl (0.2-1.3); Total Protein 7.1 g/dl (6.3-8.2); Uric Acid 6.5 mg/dl (2.5-6.2)
[2024-04-12 12:53] LABS: Alkaline Phosphatase 68 U/L (38-126)
[2024-04-12 12:55] LABS: C-Reactive Protein < 5.00 mg/L (0.0-10.00)
[2024-04-14 00:56] LABS: CCP Antibody IgG/IgA 4 Units (0-19)
== END ==
LOC: REG 10:59
PROVIDERS: ATTENDING PHYSICIAN Student in an Organized Health Care Education/Training Program; FAMILY PHYSICIAN Family Medicine
DX: M15.0 Primary generalized (osteo)arthritis (principal); M25.569 Pain in unspecified knee; M79.643 Pain in unspecified hand; Z87.39 Personal history of other diseases of the musculoskeletal system and connective tissue
CPT/HCPCS: 36415; 73130; 73630; 80053; 84550; 85025; 85652; 86140; 86200; 86430

== ENCOUNTER → 2024-04-27 08:30 | Outpatient (REF) | payer MEDICARE, OTHER, SELFPAY ==
[2024-04-27 09:24] LABS: % Basophils 0.9 % (0-2); % Immature Granulocytes 0.3 % (0-0.5); % Monocytes 8.3 % (1.7-9.3); % Neutrophils 67.5 % (42.2-75.2); Absolute Basophils 0.1 10^3/uL (0-0.2); Absolute Eosinophils 0.2 10^3/uL (0-0.7); Absolute Lymphocytes 1.6 10^3/uL (1.2-3.4); Absolute Monocytes 0.7 10^3/uL (0.1-0.6); Absolute Neutrophils 5.4 10^3/uL (1.4-6.5); Hematocrit 41.2 % (37.0-47.0); Hemoglobin 14.4 g/dL (12.0-16.0); Mean Corpuscular Hgb 30.2 pg (27.0-31.0); Mean Corpuscular Volume 86.4 fL (81.0-99.0); Mean Platelet Volume 11.7 fL (7.4-10.4); Nucleated Red Blood Cells % 0 %; Platelet Count 197 10^3/uL (130-400); Red Blood Cell Count 4.77 10^6/uL (4.20-5.40); Red Cell Dist. Width 13.5 % (11.5-14.5)
[2024-04-27 10:18] LABS: ALT (SGPT) 14 U/L (0-35); AST (SGOT) 31 U/L (14-36); Albumin 4.6 g/dl (3.5-5.0); Alkaline Phosphatase 65 U/L (38-126); Blood Urea Nitrogen 27 mg/dl (7-17); Calcium 9.6 mg/dl (8.4-10.2); Carbon Dioxide 25 mmol/L (22-30); Chloride 104 mmol/L (98-107); Glucose 85 mg/dl (70-99); Sodium 145 mmol/L (135-145); Total Bilirubin 0.6 mg/dl (0.2-1.3); Total Protein 7.1 g/dl (6.3-8.2); eGFR 50.48
== END ==
LOC: REG 08:30
PROVIDERS: ATTENDING PHYSICIAN Internal Medicine Gastroenterology
DX: R11.0 Nausea (principal); K80.20 Calculus of gallbladder without cholecystitis without obstruction
CPT/HCPCS: 36415; 80053; 85025

== ENCOUNTER → 2024-04-27 17:26 | Outpatient (REF) | payer MEDICARE, OTHER, SELFPAY ==
[2024-04-27 18:46] LABS: Urine Albumin Negative (Neg - Trace); Urine Bilirubin Negative (Negative); Urine Character Clear (Clear); Urine Color Yellow; Urine Glucose Negative (Negative); Urine Ketone Negative (Negative); Urine Leukocyte 1+ (Negative); Urine Nitrite Negative (Negative); Urine Occult Blood Negative (Negative); Urine Specific Gravity 1.005 (<1.030); Urine Urobilinogen Negative (Neg - 1+)
[2024-04-27 19:12] LABS: Urine Red Blood Cell 0-2 /HPF (0-2)
== END ==
LOC: CLAB 17:26
PROVIDERS: ATTENDING PHYSICIAN Obstetrics & Gynecology
DX: R39.9 Unspecified symptoms and signs involving the genitourinary system (principal)
CPT/HCPCS: 81003; 81015; 87086

== ENCOUNTER → 2024-08-30 09:36 | Outpatient (REF) | payer MEDICARE, OTHER, SELFPAY ==
[2024-08-30 10:34] LABS: % Basophils 0.9 % (0-2); % Eosinophils 3.8 % (0-6); % Immature Granulocytes 0.4 % (0-0.5); % Lymphocytes 24.5 % (20.5-51.1); % Monocytes 8.6 % (1.7-9.3); % Neutrophils 61.8 % (42.2-75.2); Absolute Basophils 0.1 10^3/uL (0-0.2); Absolute Eosinophils 0.2 10^3/uL (0-0.7); Absolute Lymphocytes 1.3 10^3/uL (1.2-3.4); Absolute Monocytes 0.5 10^3/uL (0.1-0.6); Absolute Neutrophils 3.4 10^3/uL (1.4-6.5); Hematocrit 44.7 % (37.0-47.0); Hemoglobin 15.4 g/dL (12.0-16.0); Mean Corp Hgb Conc. 34.5 g/dL (33.0-37.0); Mean Corpuscular Hgb 30.5 pg (27.0-31.0); Mean Corpuscular Volume 88.5 fL (81.0-99.0); Mean Platelet Volume 11.4 fL (7.4-10.4); Nucleated Red Blood Cells % 0 %; Platelet Count 197 10^3/uL (130-400); Red Blood Cell Count 5.05 10^6/uL (4.20-5.40); Red Cell Dist. Width 13.2 % (11.5-14.5); White Blood Cell Count 5.5 10^3/uL (4.8-10.8)
[2024-08-30 11:02] LABS: ALT (SGPT) 17 U/L (0-35); AST (SGOT) 31 U/L (14-36); Albumin 4.5 g/dl (3.5-5.0); Alkaline Phosphatase 90 U/L (38-126); Blood Urea Nitrogen 24 mg/dl (7-17); Calcium 9.8 mg/dl (8.4-10.2); Carbon Dioxide 27 mmol/L (22-30); Chloride 101 mmol/L (98-107); Glucose 77 mg/dl (70-99); HDL Cholesterol 63 mg/dl; LDL Cholesterol, Calculated 52 mg/dl; Potassium 4.6 mmol/L (3.5-5.1); Sodium 138 mmol/L (135-145); Total Bilirubin 0.8 mg/dl (0.2-1.3); Total Cholesterol 138 mg/dl (50-199); Total Protein 7.1 g/dl (6.3-8.2); Triglyceride 115 mg/dl (10-149); Very Low Density Lipoprotein 23 mg/dl (0-30); eGFR > 60.00
[2024-08-30 11:07] LABS: IgA 244 mg/dl (70-400)
[2024-08-30 11:09] LABS: Glycohemoglobin (HgbA1c) 5.3 % (4.0-5.6)
[2024-09-01 01:51] LABS: Endomysial IgA Antibody Titer <1:10 (<1:10)
[2024-09-01 02:35] LABS: tTG IgA Antibody <1.02 FLU (0.00-4.99)
== END ==
LOC: REG 09:36
PROVIDERS: ATTENDING PHYSICIAN Nurse Practitioner Family; FAMILY PHYSICIAN Family Medicine; REFERRING PHYSICIAN Internal Medicine Gastroenterology
DX: E11.9 Type 2 diabetes mellitus without complications (principal); R10.13 Epigastric pain
CPT/HCPCS: 36415; 80053; 80061; 82653; 82705; 82784; 83036; 83516; 85025; 86231

== ENCOUNTER → 2025-01-01 08:39 | Outpatient (REF) | payer MEDICARE, OTHER, SELFPAY ==
[2025-01-01 09:49] LABS: % Basophils 0.5 % (0-2); % Eosinophils 3.1 % (0-6); % Immature Granulocytes 0.2 % (0-0.5); % Lymphocytes 21.5 % (20.5-51.1); % Monocytes 9.9 % (1.7-9.3); % Neutrophils 64.8 % (42.2-75.2); Absolute Eosinophils 0.2 10^3/uL (0-0.7); Absolute Lymphocytes 1.3 10^3/uL (1.2-3.4); Absolute Monocytes 0.6 10^3/uL (0.1-0.6); Hematocrit 41.7 % (37.0-47.0); Hemoglobin 14.4 g/dL (12.0-16.0); Mean Corp Hgb Conc. 34.5 g/dL (33.0-37.0); Mean Corpuscular Hgb 30.8 pg (27.0-31.0); Mean Corpuscular Volume 89.3 fL (81.0-99.0); Mean Platelet Volume 12.6 fL (7.4-10.4); Nucleated Red Blood Cells % 0 %; Platelet Count 192 10^3/uL (130-400); Red Blood Cell Count 4.67 10^6/uL (4.20-5.40); Red Cell Dist. Width 13.4 % (11.5-14.5); White Blood Cell Count 6.2 10^3/uL (4.8-10.8)
[2025-01-01 10:18] LABS: ALT (SGPT) 14 U/L (0-35); AST (SGOT) 28 U/L (14-36); Albumin 4.9 g/dl (3.5-5.0); Alkaline Phosphatase 77 U/L (38-126); Blood Urea Nitrogen 27 mg/dl (7-17); Carbon Dioxide 24 mmol/L (22-30); Chloride 109 mmol/L (98-107); Glucose 80 mg/dl (70-99); HDL Cholesterol 59 mg/dl; LDL Cholesterol, Calculated 34 mg/dl; Potassium 4.4 mmol/L (3.5-5.1); Sodium 143 mmol/L (135-145); Total Bilirubin 0.7 mg/dl (0.2-1.3); Total Cholesterol 123 mg/dl (50-199); Total Protein 7.5 g/dl (6.3-8.2); Triglyceride 150 mg/dl (10-149); Very Low Density Lipoprotein 30 mg/dl (0-30)
[2025-01-01 10:27] LABS: Glycohemoglobin (HgbA1c) 4.9 % (4.0-5.6)
== END ==
LOC: REG 08:39
PROVIDERS: ATTENDING PHYSICIAN Nurse Practitioner Family; FAMILY PHYSICIAN Family Medicine
DX: E11.9 Type 2 diabetes mellitus without complications (principal)
CPT/HCPCS: 36415; 80053; 80061; 83036; 85025

== ENCOUNTER 2025-03-13 13:10 | Emergency (ER) | payer MEDICARE, OTHER, SELFPAY ==
[2025-03-13 13:12] VITALS: BP 113/85
[2025-03-13 13:15] LABS: Glucose - Point of Care 82 mg/dl (70-99)
--- NOTE | 2025-03-13 14:12 | ED.CVA ---
History of Present Illness
General
Chief Complaint: CVA/TIA Symptoms
Time Seen by Provider: 03/13/25 14:10
Onset of Stroke Symptoms
Onset of symptoms known: No
Time pt last seen normal is known: No
History of Present Illness
History of Present Illness:
PAST MEDICAL HISTORY AND REVIEW OF OLD RECORDS
- The patient has a history of A-fib on Xarelto and high blood pressure as well as diabetes.
Note:
CHIEF COMPLAINT(S)
Memory loss and difficulty with speech.
HISTORY OF PRESENT ILLNESS
The patient is an 80-year-old female who was reported to have sudden memory loss and difficulty with speech while attending a therapists appointment at 10:00 AM today. The patients relative received a call around 10:30 AM reporting these symptoms.
The therapist noted the changes in the patients cognitive function but did not report any facial asymmetry or other neurologic deficits. Upon arrival at the ER, the patient was able to correctly identify her surroundings and follow commands. Her
coordination and strength appeared normal, and her speech was appropriate during the assessment. The patient suspects that the symptoms may be due to taking gabapentin and heart medications without food. There was mention of the patient not drinking
enough fluids regularly, indicating possible dehydration.
The daughter does not seem to be concerned about any neurologic dysfunction. The daughter states that she is at her baseline neurologic status. The daughter noted some memory issues which is more subacute to chronic.
PAST MEDICAL AND SURIGICAL HISTORY
The patient has a history of atrial fibrillation, managed with a pacemaker and anticoagulation therapy with rivaroxaban. She also suffers from neuropathy, necessitating the usage of duloxetine in the evening.
ADDITIONAL HISTORY OBTAINED FROM SOURCE OTHER THAN PATIENT
The patients daughter reported that the patient neglects to eat after taking morning medications, which may include gabapentin and heart-related medications. She expressed concern that this habit might have contributed to the presenting symptoms.
CHRONIC MEDICAL CONDITIONS SIGNIFICANTLY AFFECTING CARE
- Atrial fibrillation
- Neuropathy
SOCIAL DETERMINANTS AFFECTING HEALTH
The patients daughter noted a lack of adequate fluid intake and concern about the patients hydration status.
MEDICATIONS
- Gabapentin
- Duloxetine (evening use)
- Rivaroxaban
- Atorvastatin
PHYSICAL EXAM
General: Alert, no acute distress.
Skin: Warm, dry.
Head: Normocephalic, atraumatic.
Neck: Supple, trachea midline.
Eye Ears, nose, mouth and throat: Oral mucosa moist. Speech fluent and coherent.
Cardiovascular: Normal peripheral perfusion, No edema. Regular rhythm
Respiratory: Respirations are non-labored.
Gastrointestinal: Abdomen nondistended.
Back: Normal range of motion, Normal alignment.
Musculoskeletal: Normal range of motion, normal strength.
Neurological: Alert and oriented to person, place, time, and situation, No focal neurological deficit observed. Strength and coordination normal. She was able to name the month and place without difficulty. She has an understanding what is going
on.
Psychiatric: Cooperative, appropriate mood & affect.
PROBLEM LIST
Acute Problems:
- Cognitive dysfunction with memory loss and speech difficulties.
Chronic Problems:
- Atrial fibrillation
- Neuropathy
PLAN
- Conduct blood work to assess for potential dehydration or electrolyte imbalance.
- Administer 500 mL of IV fluids.
- Await official interpretation of the CT scan by a radiologist.
- Given the patients age and history, consider monitoring and potential discharge if stable, while weighing the risks of starting aspirin given the patients gastrointestinal history and previous ulcers.
DIFFERENTIAL DIAGNOSIS
The Differential Diagnosis includes, in no particular order and is not limited to:
- Transient Ischemic Attack
- Hypoglycemia
- Dehydration
- Medication effects or interactions
- Stroke
- Cognitive impairment related to age
- Electrolyte imbalance
- Infection (such as urinary tract infection)
- Depression
- Neuropathy-associated complications
RADIOLOGY
- CAT scan of the brain personally reviewed and there is no hemorrhage
EKG
- Suspect AV paced with rate of 79
LABS
- Fingerstick blood sugar was 82 upon arrival. BUN is slightly elevated.
UPDATE
-SUMMARY OF ENCOUNTER
The patient, an 80-year-old female, visited the emergency department due to sudden memory loss and difficulty with speech. Upon evaluation, the patients creatinine level was normal, but the blood urea nitrogen (BUN) level was slightly elevated,
suggesting mild dehydration. The patient received intravenous fluids. A CT scan was performed and returned negative, leaving a possible transient ischemic attack (TIA) as a potential diagnosis. It was discussed that adding aspirin might not be
necessary at this time due to the patients current use of rivaroxaban (Xarelto). The patients hydration status was addressed with recommendations to increase fluid intake as she has a history of insufficient fluid consumption.
DISPOSITION
Discharge
ASSESSMENT
Mild dehydration likely contributing to cognitive symptoms, possible transient ischemic attack (TIA) due to sudden presenting symptoms and risk factors.
PLAN
The patient will need to increase fluid intake, especially with her current medications and health status. Follow-up with her healthcare provider, Dr. Veronica, is recommended for further evaluation and management.
INDEPENDENT REVIEW OF LABS AND INTERPRETATION OF TESTS
My independent review indicates normal creatinine levels; however, the blood urea nitrogen (BUN) was slightly elevated, likely due to dehydration.
MEDICATION RECONCILIATION
Administered 500 mL of intravenous fluids to address mild dehydration. Continued use of current medications such as rivaroxaban has been advised without the addition of aspirin at this time.
PATIENT EDUCATION AND COUNSELING
The patient was educated about the importance of adequate hydration, especially considering the possible mild dehydration observed. Discussed potential symptoms of dehydration and encouraged the patient to increase her water intake daily.
FOLLOW-UP INSTRUCTIONS
The patient should follow up with her primary care provider, Dr. Veronica, for further evaluation and continuation of care. Additionally, monitor hydration and adjust lifestyle habits to ensure adequate fluid intake.
MEDICAL DECISION MAKING
-Complexity of Data Reviewed: Chronic conditions affecting care include atrial fibrillation and neuropathy. Differential diagnosis includes transient ischemic attack, hypoglycemia, dehydration, medication effects or interactions, stroke, cognitive
impairment, electrolyte imbalance, infection, depression, and neuropathy-associated complications.
-Data:
Category 1: My independent review of creatinine was normal, and blood urea nitrogen (BUN) was slightly elevated. The CT scan interpretation was negative.
Category 2: Clinical information was obtained from an independent historian, the patient�s daughter, who provided additional history regarding hydration habits and medication intake.
-Risk: Prescription medication rivaroxaban was continued. Consideration of admission/observation was evaluated but deemed unnecessary based on reassuring work-up results and the patients stable presentation upon reevaluation. The patient was
determined to be safe for outpatient management with close follow-up.
DIAGNOSIS
- Mild dehydration (E86.0)
- Possible transient ischemic attack (G45.9)
Past History
Past History
ED Past Medical History: Arrthythmia, HTN, NIDDM, Valvular disease and Other (Ulcers)
ED Past Surgical History: Appendectomy, Cardiac (TAVR, pacer), Gynecological (Hysterectomy), Orthopedic (L hip replacement.) and Other (Left breast Lumpectomy)
Social History
Tobacco: Non-smoker
Alcohol: None
Drug: None
Personal:
Living: alone
Family History
Family History: Other (Nonsig.)
Phy Exam
Physical Exam
Physical Exam:
See HPI
Course
Orders/Labs/Results
Orders:
Orders
03/13/25 13:16
ECG [Electrocardiogram (*1)] Urgent
Reason for Study: TIA/Stroke
CT Head W/o Iv Contrast Urgent
Comment:
Reason For Exam: stroke like symptoms
EKG- Treatment ONCE
03/13/25 14:23
0.9% Sodium Chloride 500 ml [Nss] 500 ml IV BOLUS
03/13/25 14:28
Complete Blood Count/No Diff Urgent
Comprehensive Metabolic Panel Urgent
Abnormal Lab Results
03/13/25
14:28
MCH 31.3 H pg
(27.0-31.0)
MPV 10.9 H fL
(7.4-10.4)
BUN 28 H mg/dl
(01-31)
03/13/25 14:28
03/13/25 14:28
Vital Signs
Initial and Last Documented VS:
Initial Vital Signs
Temp Pulse Resp BP Pulse Ox
36.7 C 81 20 113/85 97
03/13/25 13:12 03/13/25 13:12 03/13/25 13:12 03/13/25 13:12 03/13/25 13:12
Last Documented Vital Signs
Temp Pulse Resp BP Pulse Ox
36.7 C 75 12 125/68 97
03/13/25 13:12 03/13/25 15:00 03/13/25 15:00 03/13/25 15:00 03/13/25 15:00
*Pulse Oximetry
SaO2: 97
Oxygen Mode of Delivery: Room air
Patient hypoxic: no
*Critical Care Note
Total Time (30-74mins, 75-104mins- exclusive of procedures): Not Applicable
ED Attending Note
-
Portions of this chart may have been created with voice recognition software.� Occasional wrong word or��sound alike� substitutions may have occurred due to the inherent limitations of voice recognition software.
Discharge Plan
Departure
Prescriptions:
No Action
gabapentin 300 mg Capsule
300 mg PO HS
metformin 500 mg Tablet
1,000 mg PO BIDWMEAL
famotidine [Pepcid] 20 mg Tablet
40 mg PO HS
ascorbic acid (vitamin C) [Vitamin C] 500 mg Tablet
500 mg PO DAILY
losartan 25 mg Tablet
25 mg PO DAILY
cholecalciferol (vitamin D3) [Vitamin D3] 25 mcg (1,000 unit) Capsule
25 mcg PO DAILY
esomeprazole magnesium [Nexium] 40 mg Capsule,Delayed Release(Dr/Ec)
40 mg PO DAILY
Xarelto 20 mg Tablet
20 mg PO QPM Qty: 30 0RF
atorvastatin 10 mg tablet
10 mg PO DAILY
meclizine 25 mg tablet
12.5 mg PO TIDPRN PRN (Reason: dizziness)
omeprazole 20 mg capsule,delayed release(DR/EC)
20 mg PO BID
mirabegron [Myrbetriq] 50 mg tablet extended release 24 hr
50 mg PO DAILY
Mounjaro 5 mg/0.5 mL pen injector
5 mg SC MO
cyclobenzaprine 10 mg tablet
5 mg PO TIDPRN PRN (Reason: Muscle spasm)
acetaminophen [Pain Relief ES (acetaminophen)] 500 mg tablet
1,000 mg PO [id number] PRN (Reason: mild pain)
sennosides-docusate sodium [Stool Softener-Stimulant Laxat] 8.6-50 mg tablet
1 tab PO DAILY
colchicine 0.6 mg tablet
0.6 mg PO BID
metoprolol succinate 25 mg Tablet Extended Release 24 Hr
25 mg PO BID Qty: 60 0RF
Referrals:
Radha Taylor MD [Family Provider, Family Practice]
Interventions
Interventions:
*Risk Screen - Suicide Last Done: 03/13/25 14:18
*General Assessment Last Done: 03/13/25 13:12
*Neglect/Abuse Screening Last Done: 03/13/25 14:18
*ED- Fall Risk Assessment Last Done: 03/13/25 14:18
*ED COVID-19 Vaccine History Last Done: 03/13/25 14:18
ED- Pulmonary Assessment Last Done: 03/13/25 14:20
ED- Neurological Assessment Last Done: 03/13/25 14:20
ED- Cardiac Assessment Last Done: 03/13/25 14:20
ED Swallowing Screen Last Done: 03/13/25 15:22
Discharge Date and Time
Print Language: ANDORRAN
[2025-03-13 14:14] VITALS: BP 100/58
[2025-03-13 14:17] VITALS: BMI 27.0
[2025-03-13] MEDS: NSS 500 IV (14:29)
[2025-03-13 14:57] LABS: Hematocrit 41.0 % (37.0-47.0); Hemoglobin 14.1 g/dL (12.0-16.0); Mean Corp Hgb Conc. 34.4 g/dL (33.0-37.0); Mean Corpuscular Volume 90.9 fL (81.0-99.0); Platelet Count 174 10^3/uL (130-400); Red Cell Dist. Width 13.6 % (11.5-14.5)
[2025-03-13 15:00] VITALS: BP 125/68
[2025-03-13 15:11] LABS: ALT (SGPT) 16 U/L (0-35); AST (SGOT) 30 U/L (14-36); Albumin 4.6 g/dl (3.5-5.0); Alkaline Phosphatase 60 U/L (38-126); Blood Urea Nitrogen 28 mg/dl (7-17); Calcium 10.1 mg/dl (8.4-10.2); Carbon Dioxide 26 mmol/L (22-30); Chloride 106 mmol/L (98-107); Estimated Creatinine Clearance 37 ml/min; Glucose 70 mg/dl (70-99); Potassium 4.6 mmol/L (3.5-5.1); Sodium 139 mmol/L (135-145); Total Protein 7.0 g/dl (6.3-8.2); eGFR 56.25
== END 2025-03-13 15:39 | disposition home or self-care (01) ==
LOC: EMR 13:10
PROVIDERS: EMERGENCY PHYSICIAN Emergency Medicine; FAMILY PHYSICIAN Family Medicine
DX: E86.0 Dehydration (principal); E11.40 Type 2 diabetes mellitus with diabetic neuropathy, unspecified; I48.91 Unspecified atrial fibrillation; I10 Essential (primary) hypertension; Z79.01 Long term (current) use of anticoagulants; Z79.84 Long term (current) use of oral hypoglycemic drugs; Z79.85 Long-term (current) use of injectable non-insulin antidiabetic drugs; Z95.0 Presence of cardiac pacemaker; Z95.2 Presence of prosthetic heart valve; Z96.642 Presence of left artificial hip joint
CPT/HCPCS: 99284; 96360; 70450; 80053; 82962; 85027; 93005

== ENCOUNTER → 2025-05-23 09:11 | Outpatient (REF) | payer MEDICARE, OTHER, SELFPAY | LOC: WDC 09:11 | PROVIDERS: ATTENDING PHYSICIAN Obstetrics & Gynecology; FAMILY PHYSICIAN Family Medicine | DX: N63.20 Unspecified lump in the left breast, unspecified quadrant (principal); N63.21 Unspecified lump in the left breast, upper outer quadrant | CPT/HCPCS: 76642; 77062; 77066 ==

== ENCOUNTER 2025-06-30 20:18 | Inpatient (IN) | payer MEDICARE, OTHER, SELFPAY ==
[2025-06-30] VITALS (9 sets, daily range): BP systolic 101–133; BP diastolic 59–91; BMI 28.4; BMI 28.0
[2025-06-30 16:54] LABS: Hematocrit 41.8 % (37.0-47.0); Hemoglobin 14.2 g/dL (12.0-16.0); Mean Corp Hgb Conc. 34.0 g/dL (33.0-37.0); Mean Corpuscular Volume 89.5 fL (81.0-99.0); Nucleated Red Blood Cells % 0 %; Platelet Count 197 10^3/uL (130-400); Red Cell Dist. Width 13.5 % (11.5-14.5)
--- NOTE | 2025-06-30 17:04 | ED.GENMED ---
History of Present Illness
General
Chief Complaint: Cardiac Symptoms
Time Seen by Provider: 06/30/25 16:50
History of Present Illness
History of Present Illness:
Patient is a 80-year-old woman with pacemaker after complete heart block also atrial fibrillation on Xarelto, nonsustained V. tach and paroxysmal SVT on metoprolol presenting to the emergency department with palpitations. Patient states that for
the past week she has had 32nd episodes of palpitations dizziness lightheadedness and feeling flushed. Last night she did not get nauseous from it. No syncopal events. No chest pain. No difficulty breathing. No diarrhea. Has been compliant
with her Xarelto and metoprolol. Per chart review patient was admitted in December 2023 for similar and was found to be in SVT as well as nonsustained V. tach.
Past History
Past History
ED Past Medical History: Arrthythmia, HTN, NIDDM, Valvular disease and Other (Ulcers)
ED Past Surgical History: Appendectomy, Cardiac (TAVR, pacer), Gynecological (Hysterectomy), Orthopedic (L hip replacement.) and Other (Left breast Lumpectomy)
Social History
Tobacco: Non-smoker
Alcohol: None
Drug: None
Personal:
Living: alone
Family History
Family History: Other (Nonsig.)
Phy Exam
Physical Exam
Physical Exam:
GENERAL: in no acute distress
HEENT: normocephalic, extraocular movements intact, moist oral mucosa
NECK: normal inspection
RESPIRATORY: no respiratory distress, clear to auscultation bilaterally
CARDIOVASCULAR: regular rate and rhythm
ABDOMEN/: soft, non-distended, non-tender to palpation, no rebound or guarding
EXTREMITIES: non-tender, no edema/swelling
NEUROLOGIC: awake and alert, moves all extremities
SKIN: warm
Course
Orders/Labs/Results
Orders:
Orders
06/30/25 15:56
EKG [Electrocardiogram (*1)] Urgent
Reason for Study: Chest Pain
EKG- Treatment ONCE
pacemaker [Interrogate Pacemaker- Treatment] ONCE
06/30/25 16:47
Complete Blood Count/With Diff Urgent
Comprehensive Metabolic Panel Urgent
Pro-BNP [NT-proBNP] Urgent
Troponin I Urgent
06/30/25 17:43
Add On- LAB Urgent
Tests Added?: magnesium
Abnormal Lab Results
06/30/25
16:47
MPV 11.4 H fL
(7.4-10.4)
Monocytes % 10.2 H %
(1.7-9.3)
Carbon Dioxide 20 L mmol/L
(22-30)
BUN 39 H mg/dl
(7-17)
Creatinine 1.1 H mg/dL
(0.6-1.0)
Glucose 107 H mg/dl
(70-99)
06/30/25 16:47
06/30/25 16:47
Vital Signs
Initial and Last Documented VS:
Initial Vital Signs
Temp Pulse Resp BP Pulse Ox
97.5 F 64 16 104/71 98
06/30/25 15:54 06/30/25 15:54 06/30/25 15:54 06/30/25 15:54 06/30/25 15:54
Last Documented Vital Signs
Temp Pulse Resp BP Pulse Ox
97.5 F 78 18 104/60 97
06/30/25 15:54 06/30/25 17:30 06/30/25 17:30 06/30/25 17:00 06/30/25 17:30
MDM/Problems Addressed
Differential Diagnosis Includes:
Patient is a 80-year-old woman with pacemaker, atrial fibrillation on Xarelto, paroxysmal SVTs as well as nonsustained V. tach on metoprolol presenting to the emergency department with episodes of palpitations and dizziness. On arrival vitals
unremarkable exam is reassuring. Concern for cardiac arrhythmia versus atypical ACS versus dehydration though less likely. Will check blood work with troponin and magnesium. EKG per my interpretation shows paced rhythm. Interrogated pacemaker
that did show multiple episodes of VT and NSVT.
Blood work reassuring. Patient with episodes of dizziness though review of telemetry shows paced rhythm. discussed with hospitalist who accepted patient to their service with mg and tsh pending.
*Pulse Oximetry
SaO2: 96
Oxygen Mode of Delivery: Room air
Patient hypoxic: no
*Critical Care Note
Total Time (30-74mins, 75-104mins- exclusive of procedures): Not Applicable
ED Attending Note
-
Portions of this chart may have been created with voice recognition software.� Occasional wrong word or��sound alike� substitutions may have occurred due to the inherent limitations of voice recognition software.
Discharge Plan
Departure
Patient Disposition: Admit
Date of Disposition: 06/30/25
Time of Disposition: 17:43
Presentation/result/management discussed w/ accepting MD/DO: Hospitalist
Discharge Problem:
Palpitations
Prescriptions:
No Action
gabapentin 300 mg Capsule
300 mg PO HS
metformin 500 mg Tablet
1,000 mg PO BIDWMEAL
famotidine [Pepcid] 20 mg Tablet
40 mg PO HS
ascorbic acid (vitamin C) [Vitamin C] 500 mg Tablet
500 mg PO DAILY
losartan 25 mg Tablet
25 mg PO DAILY
cholecalciferol (vitamin D3) [Vitamin D3] 25 mcg (1,000 unit) Capsule
25 mcg PO DAILY
esomeprazole magnesium [Nexium] 40 mg Capsule,Delayed Release(Dr/Ec)
40 mg PO DAILY
Xarelto 20 mg Tablet
20 mg PO QPM Qty: 30 0RF
atorvastatin 10 mg tablet
10 mg PO DAILY
meclizine 25 mg tablet
12.5 mg PO TIDPRN PRN (Reason: dizziness)
omeprazole 20 mg capsule,delayed release(DR/EC)
20 mg PO BID
mirabegron [Myrbetriq] 50 mg tablet extended release 24 hr
50 mg PO DAILY
Mounjaro 5 mg/0.5 mL pen injector
5 mg SC MO
cyclobenzaprine 10 mg tablet
5 mg PO TIDPRN PRN (Reason: Muscle spasm)
acetaminophen [Pain Relief ES (acetaminophen)] 500 mg tablet
1,000 mg PO [id number] PRN (Reason: mild pain)
sennosides-docusate sodium [Stool Softener-Stimulant Laxat] 8.6-50 mg tablet
1 tab PO DAILY
colchicine 0.6 mg tablet
0.6 mg PO BID
metoprolol succinate 25 mg Tablet Extended Release 24 Hr
25 mg PO BID Qty: 60 0RF
Referrals:
Radha Taylor MD [Family Provider, Family Practice]
Interventions
Interventions:
*Risk Screen - Suicide Last Done: 06/30/25 15:54
*General Assessment Last Done: 06/30/25 16:26
*Neglect/Abuse Screening Last Done: 06/30/25 15:54
*ED COVID-19 Vaccine History Last Done: 06/30/25 16:26
*ED Influenza Vaccine History Last Done: 06/30/25 16:26
[facility] Fall Risk Assessment Tool Last Done: 06/30/25 16:26
ED- Pulmonary Assessment Last Done: 06/30/25 16:26
ED- Cardiac Assessment Last Done: 06/30/25 16:26
Discharge Date and Time
Print Language: HEBREW
[2025-06-30 17:11] LABS: ALT (SGPT) 13 U/L (0-35); AST (SGOT) 25 U/L (14-36); Albumin 4.4 g/dl (3.5-5.0); Alkaline Phosphatase 55 U/L (38-126); Blood Urea Nitrogen 39 mg/dl (7-17); Calcium 9.8 mg/dl (8.4-10.2); Carbon Dioxide 20 mmol/L (22-30); Chloride 107 mmol/L (98-107); Estimated Creatinine Clearance 35 ml/min; Glucose 107 mg/dl (70-99); Potassium 4.0 mmol/L (3.5-5.1); Sodium 139 mmol/L (135-145); Total Protein 6.9 g/dl (6.3-8.2); eGFR 50.17
[2025-06-30 17:19] LABS: Troponin I 0.026 ng/ml
[2025-06-30 18:18] LABS: Magnesium 1.6 mg/dl (1.6-2.3)
--- NOTE | 2025-06-30 19:01 | HPS.HSE ---
Family Physician
<SB Camejo - Last Filed: 06/30/25 19:58>
-
Family Physician: Radha Taylor
Chief Complaint
<SB Camejo - Last Filed: 06/30/25 19:58>
-
Palpitation, dizziness lightheadedness, vomiting
History of Present Illness
80-year-old female complaining of palpitations, dizziness, lightheadedness and feeling flushed for the past week. She reports vomiting yesterday due to symptoms. She had pacemaker interrogated here in ER showing multiple episodes of NSVT/VT. She
denies fever, chills, sore throat, headache, chest pain, cough, shortness of breath, abdominal pain, diarrhea, urinary symptoms. She had prior admission in December 2023 found to be in SVT and nonsustained V. tach she has history of pacemaker due to
complete heart block is also on Xarelto for A-fib. Other past medical history includes hypertension, DM 2, aortic stenosis status post TAVR, GERD/gastric ulcers, left breast lumpectomy, gout TMJ receives Botox every 3 months
Medical History
<SB Camejo - Last Filed: 06/30/25 19:58>
Past Medical History
Past Medical History: Reports Other
Additional Past Medical History:
December 2023 found to be in SVT and nonsustained V. tach
pacemaker due to complete heart block
pericardial effusion/tamponade treated with pericardiocentesis 2022
A-fib
hypertension
DM 2
aortic stenosis status post TAVR
GERD/gastric ulcers
left breast lumpectomy
gout
TMJ receives Botox every 3 months
Chronic ambulatory dysfunction uses cane at baseline
lumbar laminectomy/fusion with spinal stimulator
Vertigo
Restless leg syndrome with neuropathy
Past Surgical History: Reports Other
Additional Past Surgical History:
TVAR
Pacemaker placement
pericardial effusion/tamponade treated with pericardiocentesis 2022
Social History
Tobacco: Non-smoker
Alcohol: None
Drug: None
Living: With Family
Family History
Family History: Not pertinent
Allergies / Home Medications
Allergies reflects when Allergies were last updated in [employer].
Home Medications with original date entered in [employer]
<Enrike Joe MD - Last Filed: 06/30/25 19:56>
Allergies / Home Medications
Allergy/Medication List:
Allergies
Allergy/AdvReac Type Severity Reaction Status Date / Time
codeine Allergy Severe Verified 06/30/25 15:53
Vomiting
latex Allergy Burning, Verified 06/30/25 15:53
Itching,
Blisters
oxycodone Allergy Severe Verified 06/30/25 15:53
Vomiting
Home Medications
ascorbic acid (vitamin C) 500 mg tablet (Vitamin C) 500 mg PO DAILY Supplement 05/14/23
cholecalciferol (vitamin D3) 25 mcg (1,000 unit) capsule (Vitamin D3) 25 mcg PO DAILY Supplement 05/14/23
famotidine 20 mg tablet (Pepcid) 40 mg PO HS Gastrointestinal Issue 05/14/23
gabapentin 300 mg capsule 300 mg PO HS rls 05/14/23
losartan 25 mg tablet 25 mg PO DAILY Blood Pressure 05/14/23
metformin 500 mg tablet 1,000 mg PO BIDWMEAL Diabetes 05/14/23
esomeprazole magnesium 40 mg capsule,delayed release (Nexium) 40 mg PO DAILY Gastrointestinal Issue 07/22/23
rivaroxaban 20 mg tablet (Xarelto) 20 mg PO QPM #30 tabs 07/26/23
acetaminophen 500 mg tablet (Pain Relief Extra Strength (acetaminophen)) 1,000 mg PO [id number] PRN mild pain 01/11/24
atorvastatin 10 mg tablet 10 mg PO DAILY High Cholesterol 01/11/24
cyclobenzaprine 10 mg tablet 5 mg PO TIDPRN PRN Muscle spasm 01/11/24
meclizine 25 mg tablet 12.5 mg PO TIDPRN PRN dizziness 01/11/24
mirabegron 50 mg tablet,extended release 24 hr (Myrbetriq) 50 mg PO DAILY Urinary Issue 01/11/24
omeprazole 20 mg capsule,delayed release 20 mg PO BID Gastrointestinal Issue 01/11/24
tirzepatide 5 mg/0.5 mL subcutaneous pen injector (Mounjaro) 5 mg SC MO Diabetes 01/11/24
colchicine 0.6 mg tablet 0.6 mg PO BID Gout 01/12/24
metoprolol succinate 25 mg tablet,extended release 24 hr 25 mg PO BID #60 tabs 01/12/24
sennosides 8.6 mg-docusate sodium 50 mg tablet (Stool Softener-Stimulant Laxative) 1 tab PO DAILY Constipation 01/12/24
Review of Systems
<SB Camejo - Last Filed: 06/30/25 19:58>
-
History Source: Patient and Family (Daughter at bedside)
A 12 point ROS was completed and negative except as noted: Yes
Constitutional: Denies Fever or Chills
EENT: Denies Sore Throat
Respiratory: Reports Trouble Breathing; Denies Cough
Cardiac: Reports Palpitations
Abdomen/GI: Reports Nausea and Vomiting (With SVT); Denies Abdominal Pain
: Denies Dysuria, Frequency, Flank Pain, Incontinence, Difficulty Voiding or Urgency
Musculoskeletal: Denies Joint Pain or Joint Swelling
Skin: Denies Itching or Rash
Neurological: Reports Dizzy; Denies Headache or Weakness
Endocrine: Reports No Symptoms
Hematologic/Lymphatic: Reports No Symptoms
Psych: Reports Calm
Physical Exam
<SB Camejo - Last Filed: 06/30/25 19:58>
Vital Signs
Vital Signs
Temp Pulse Resp BP Pulse Ox
97.5 F 78 21 116/59 97
06/30/25 15:54 06/30/25 18:45 06/30/25 18:45 06/30/25 18:00 06/30/25 18:45
Physical Exam
General: Comfortable and Conversant; No Pain, Fever or Chills
HEENT: NormoCephalic, Anicteric, Moist mucous membranes, Atraumatic, PERRLA, [place] Conjunctivae and No Ptosis
Respiratory: Clear; No Wheezes, Rales or Rhonchi
Cardiac: S1/S2 and Other (Paced rhythm 70 bpm will monitor); No Murmur, Rub, Gallop, Peripheral Edema or JVD
Breast: Deferred by me
GI: Soft, Non Tender, Non Distended, Normal Bowel Sounds and No Hepatosplenomegaly
Rectal: Deferred by Provider
Genito-urinary: Deferred by me
Musculoskeletal: No Clubbing, No Cyanosis and No Edema
Skin: Warm and Dry; No Rash or Jaundice
Neuro: AO x 3, No Motor Deficits, Nonfocal/grossly intact, Cranial Nerves Intact and No Sensory Deficits; No Slurred Speech, Facial Droop, Tremors or Sedated
Psych: Calm
Laboratory Results
<SB Camejo - Last Filed: 06/30/25 19:58>
-
06/30/25 16:47
06/30/25 16:47
Laboratory Results
Total Bilirubin 0.4 mg/dl (0.2-1.3) 06/30/25 16:47
AST 25 U/L (14-36) 06/30/25 16:47
ALT 13 U/L (0-35) 06/30/25 16:47
Alkaline Phosphatase 55 U/L (38-126) 06/30/25 16:47
Troponin I 0.026 ng/ml 06/30/25 16:47
Data Reviewed
<SB Camejo - Last Filed: 06/30/25 19:58>
-
Lab Data: Labs Reviewed by me
Impression/Plan
<SB Camejo - Last Filed: 06/30/25 19:58>
-
Impression/plan:
Admit to telemetry
#Intermittent NSVT/VT per interrogated pacemaker
#Permanent pacemaker secondary to complete heart block�interrogated showing multiple episodes of VT/NSVT
Current heart rate 78 bpm
- Consult CBC cardiology
- Will increase metoprolol from 12.5 mg twice daily to 25 mg twice daily for better HR control
-Hold losartan 25mg hs due to hypotension
- Check CXR BNP elevated 1300
EKG: Atrial sensed ventricular paced rhythm 80 bpm otherwise normal
#Mild hypotension/HTN benign
BP 104/60 > 118/65
- Will increase metoprolol from 12.5 mg twice daily to 25 mg twice daily for better HR control
-Hold losartan 25 mg hs due to hypotension
#Paroxysmal A-fib
-Continue Xarelto 2 mg at bedtime
Continue metoprolol 12.5 mg twice daily
#CKD 3 B
Creat 1.1 baseline appears 1
#HLD
Continue atorvastatin 10 mg daily
#Chronic heart failure preserved EF
I/O, daily weight
Continue spironolactone 12.5 mg in a.m.
2D echo 01/12/2024: EF 65 to 70% normal LV S LVSF mild to moderate mitral stenosis, status post TAVR peak mean gradients 9/4 mmHg
#History of pericardial effusion/tamponade treated with pericardiocentesis 2022
#Aortic stenosis status post TAVR
#DM 2
Accu-Cheks with SSI, check HgbA1c
Hold metformin 1000mg twice daily
- hold repaglinide 0.5 mg with meals
#Lumbar laminectomy/fusion with spine stimulator
#GERD/gastric ulcer
- Continue Prilosec 20 mg a.m., Pepcid 20 mg at bedtime
#Vertigo
#Gout
- Continue colchicine
#Restless leg syndrome
- cont gabapentin 300 mg a.m., 600 mg at bedtime, Cymbalta 30 mg at bedtime
- Patient on Ubrelvy 100 mg daily
#Chronic TMJ pain
Gets Botox every 3 months bilateral TMJ joints
DVT prophylaxis
Continue Xarelto
Full code
--- NOTE | 2025-06-30 19:50 | W.PN.UPDATE ---
Update Note
Progress Note Update
Attending note
Patient seen independently
Inititial presentation
80-year-old woman with palpitations, dizziness, lightheadedness and feeling flushed for the past week. Vomiting yesterday due to symptoms. Pacemaker interrogated in ER showing multiple episodes of NSVT/VT. She denies fever, chills, sore throat,
headache, chest pain, cough, shortness of breath, abdominal pain, diarrhea, urinary symptoms. Comfortable at the time of my interview.
Past Medical History
December 2023 found to be in SVT and nonsustained V. tach
pacemaker due to complete heart block
pericardial effusion/tamponade treated with pericardiocentesis 2022
A-fib
hypertension
DM 2
aortic stenosis status post TAVR
GERD/gastric ulcers
left breast lumpectomy
gout
TMJ receives Botox every 3 months
Chronic ambulatory dysfunction uses cane at baseline
lumbar laminectomy/fusion with spinal stimulator
Vertigo
Restless leg syndrome with neuropathy
TVAR
Pacemaker placement
pericardial effusion/tamponade treated with pericardiocentesis 2022
Physical Exam
General: Comfortable and Conversant;
HEENT: NormoCephalic, Anicteric, Moist mucous membranes,
Respiratory: Clear; No Wheezes, Rales or Rhonchi
Cardiac: S1/S2 and Other (Paced rhythm 70 bpm will monitor);
GI: Soft, Non Tender, Non Distended,
Musculoskeletal: No Clubbing, No Cyanosis and No Edema
Skin: Warm and Dry; No Rash or Jaundice
Neuro: AO x 3
Psych: Calm
Impression/plan:
1. Intermittent NSVT/VT per interrogated pacemaker with
Permanent pacemaker secondary to complete heart block�interrogated showing multiple episodes of VT/NSVT
Current heart rate 78 bpm
- Consult CBC cardiology
- increase metoprolol from 12.5 mg twice daily to 25 mg twice daily
-Hold losartan 100 mg hs due to hypotension
- Check CXR BNP elevated 1300
Please see BIOLOGICAL TECHNICIAN note for full details on
Mild hypotension/HTN benign
Paroxysmal A-fib
CKD 3 B
HLD
Chronic heart failure preserved EF
History of pericardial effusion/tamponade treated with pericardiocentesis 2022
Aortic stenosis status post TAVR
DM 2
Lumbar laminectomy/fusion with spine stimulator
GERD/gastric ulcer
Vertigo
Gout
Restless leg syndrome
Chronic TMJ pain
DVT prophylaxis Continue Xarelto
Full code
[2025-06-30] MEDS: LOPRESSOR 25 MG PO (22:13)
[2025-06-30] MEDS: XARELTO 20 MG PO (22:13)
[2025-06-30 22:57] LABS: Glucose - Point of Care 122 mg/dl (70-99)
[2025-06-30] MEDS: NEURONTIN 600 MG PO (23:05)
[2025-06-30] MEDS: CYMBALTA DELAYED RELEASE 30 MG PO (23:05)
[2025-06-30] MEDS: COLCHICINE 0.6 MG PO (23:05)
[2025-06-30] MEDS: PEPCID 20 MG PO (23:06)
[2025-06-30] MEDS: TYLENOL 650 MG PO (23:10)
[2025-07-01] VITALS (7 sets, daily range): BP systolic 109–131; BP diastolic 72–102; PULSE 64; O2SAT 99; BMI 28.0
--- NOTE | 2025-07-01 00:09 | PTCARENOTE ---
Rec'd pt as admission from ED. Admission complete and pt oriented to unit. Pt AAO*3, VSS, and Vpaced on tele monitor. Pt reports mild headache and PRN Tylenol given as ordered. Pt reported 'twinge feeling' in chest, EKG obtained and FIELD ADMINISTRATOR
Abdelwahab notified via [employer]. Pt reported relief without any intervention after 5 seconds. Pt currently resting with call cotton in reach. See MAR and flowchart for full pt care and assessment.
Education provided to pt for fall prevention due to moderate fall risk status. Plan of care ongoing.
[2025-07-01] MEDS: ULTRAM 50 MG PO (05:58)
[2025-07-01 06:03] LABS: Hematocrit 40.5 % (37.0-47.0); Hemoglobin 13.7 g/dL (12.0-16.0); Mean Corp Hgb Conc. 33.8 g/dL (33.0-37.0); Mean Corpuscular Volume 89.6 fL (81.0-99.0); Nucleated Red Blood Cells % 0 %; Platelet Count 182 10^3/uL (130-400); Red Cell Dist. Width 13.5 % (11.5-14.5)
[2025-07-01 06:27] LABS: ALT (SGPT) < 10 U/L (0-35); AST (SGOT) 22 U/L (14-36); Albumin 4.1 g/dl (3.5-5.0); Alkaline Phosphatase 51 U/L (38-126); Blood Urea Nitrogen 34 mg/dl (7-17); Calcium 9.6 mg/dl (8.4-10.2); Carbon Dioxide 20 mmol/L (22-30); Chloride 108 mmol/L (98-107); Estimated Creatinine Clearance 42 ml/min; Glucose 82 mg/dl (70-99); HDL Cholesterol 58 mg/dl; LDL Cholesterol, Calculated 29 mg/dl; Magnesium 1.7 mg/dl (1.6-2.3); Potassium 4.0 mmol/L (3.5-5.1); Sodium 137 mmol/L (135-145); Total Protein 6.4 g/dl (6.3-8.2); Very Low Density Lipoprotein 12 mg/dl (0-30); eGFR > 60.00
[2025-07-01 07:47] LABS: Glucose - Point of Care 89 mg/dl (70-99)
--- NOTE | 2025-07-01 07:54 | CON.CAR ---
Consultation
Consultation Request
Date/Time Consultation Requested: 07/01/25
Reason for Consultation: Ventricular arrhythmia
Medical History
-
Chief Complaint: Palpitation, dizziness
History of Present Illness:
80 yrs old woman with hx of s/p TAVR 2022, hypertension, HFpEF, PUD, neurostimulator in place, LBBB, PAF on Xarelto, hx pericardiocentesis, DM, CHB s/p pacemaker 2022
GERD/gastric ulcers, left breast lumpectomy, gout TMJ receives Botox every 3 months who is here for evaluation of episode of dizziness and diaphoresis.
Pt has hx of AF and was hospitalized to frequent episodes of SVT in December 2023. She had rare NSVT noted since then.
Now she presented with higher frequency of NSVT on her PPM and had symptoms of Palpitation, dizziness lightheadedness, vomiting.
TAVR - 10/21/22: 26mm CoreValve Evolute Pro using a right percutaneous transfemoral approach
LHC 09/17/22: Normal coronary arteries- Severe aortic stenosis with mean gradient 43 mmHg
Normal left ventricular function with EF 68%
PPM - 05/16/23: Conduction system Medtronic dual chamber PPM
ECHO: 01/12/24: Normal left ventricular size, wall thickness and systolic function. LV ejection fraction is 65-70%. S/p TAVR with peak/mean gradients across the aortic valve of 9/4 mmHg. No
aortic regurgitation is seen.
Past Medical History
Past Medical History: Arrhythmias (AF. SVT, NSVT), CHF, HTN, NIDDM, Valvular Disease (s/pp TAVR - 2022) and Other
Past Surgical History: Cardiac (TAVR, PPM, h/o pericardioventesis.) and Other (neurostimulator)
Social History
Tobacco: Non-Smoker
Alcohol: None
Family History
Family History: Reviewed & Not Pertinent
Allergies / Home Medications
Allergy/AdvReac Type Severity Reaction Status Date / Time
codeine Allergy Severe Verified 06/30/25 15:53
Vomiting
latex Allergy Burning, Verified 06/30/25 15:53
Itching,
Blisters
oxycodone Allergy Severe Verified 06/30/25 15:53
Vomiting
�Medication �Instructions �Recorded �Confirmed �Type
famotidine 20 mg tablet (Pepcid) 40 mg PO HS Gastrointestinal Issue 05/14/23 06/30/25 History
gabapentin 300 mg capsule 600 mg PO HS rls 05/14/23 06/30/25 History
losartan 25 mg tablet 25 mg PO HS Blood Pressure 05/14/23 06/30/25 History
metformin 500 mg tablet 1,000 mg PO BIDWMEAL Diabetes 05/14/23 06/30/25 History
rivaroxaban 20 mg tablet (Xarelto) 20 mg PO QPM #30 tabs 07/26/23 06/30/25 Rx
acetaminophen 500 mg tablet (Pain 1,000 mg PO [id number] PRN mild pain 01/11/24 06/30/25 History
Relief Extra Strength
(acetaminophen))
atorvastatin 10 mg tablet 10 mg PO DAILY High Cholesterol 01/11/24 06/30/25 History
mirabegron 50 mg tablet,extended 50 mg PO DAILY Urinary Issue 01/11/24 06/30/25 History
release 24 hr (Myrbetriq)
omeprazole 20 mg capsule,delayed 20 mg PO DAILY Gastrointestinal 01/11/24 06/30/25 History
release Issue
colchicine 0.6 mg tablet 0.6 mg PO BID Gout 01/12/24 06/30/25 History
duloxetine 30 mg capsule,delayed 30 mg PO HS Mental Health/Anxiety 06/30/25 06/30/25 History
release
gabapentin 300 mg capsule 300 mg PO DAILY RLS 06/30/25 06/30/25 History
metoprolol succinate 25 mg 12.5 mg PO BID Blood Pressure 06/30/25 06/30/25 History
tablet,extended release 24 hr
repaglinide 0.5 mg tablet 0.5 mg PO TIDWMEAL Diabetes 06/30/25 06/30/25 History
spironolactone 25 mg tablet 12.5 mg PO DAILY Fluid 06/30/25 06/30/25 History
Retention/Swelling
tramadol 50 mg tablet 50 mg PO Q6H PRN mild pain 06/30/25 06/30/25 History
ubrogepant 100 mg tablet (Ubrelvy) 100 mg PO DAILY MIGRAINES 06/30/25 06/30/25 History
Review of Systems
-
All other systems: Negative unless noted
Physical Exam
Vital Signs
Temp Pulse Resp BP Pulse Ox
97.6 F 67 17 130/78 100
07/01/25 07:07 07/01/25 06:00 07/01/25 07:07 07/01/25 05:13 07/01/25 07:07
Lab Results
07/01/25 05:24
07/01/25 05:24
Troponin I 0.026 ng/ml 06/30/25 16:47
[id number] Pept 1570 pg/ml 06/30/25 16:47
Physical Exam
General: Well Developed, Well Nourished and Respiratory Distress (mild resp distress)
HEENT: Normocephalic, Anicteric and Moist Mucous Membranes
Respiratory: Clear and Non Labored Respirations
Cardiac: S1/S2 and Regular Rhythm; Negative Murmur
GI: Soft, Non Distended and Normal Bowel Sounds
Musculoskeletal: No Clubbing, No Cyanosis and No Edema
Skin: Warm and Dry
Neuro: Awake, Alert, Oriented, AO x 3 and No Motor Deficits
Impression / Plan
-
80 y/o female with s/p TAVR 2022, hypertension, HFpEF, PUD, neurostimulator in place, LBBB, PAF on Xarelto, hx pericardial effusion/tamponade with pericardiocentesis, DM, CHB s/p pacemaker 2022 who is here for evaluation of episode of SVT and
NSVT.
NSVT:
- Increasing frequency
- Possible precipitating factor like viral infection
- Check ECHO.
- Hypomagnesemia - replace
- Keep K >4.0 and Mg > 2.0
- Normal Cors in 2022 - Unlikely to have any significant disease (if last 80 years were not able to cause any CAD, these last two years under treatment are not likely to cause it)
- Trop 0.026 - normal
- Increase metoprolol - 12.5 to 25 mg BID
- Hold losartan
- if no etiology noted, may have to add AAD like Amiodarone
- Needs closer follow up at cardiology office
Resp distress
- Mild distress
- Normal EKG and tele with continued dyspnea
- CXR is clear
- Possible upper resp infection - rule out Flu
SVT
- Afl and AF
- On Xarelto
- increasing Toprol
Pacemaker:
-battery/leads stable
-follow tele
Hx TAVR, HFpEF, pericardial effusion:
-checking echo
-not overloaded
Gout
- On Colchicine.
Data Reviewed
-
EKG: Tracing Personally Visualized and interpreted
Radiology: Image Personally Visualized and interpreted and Report Reviewed by me
Medical Tests (Nuc Med, Echo etc): Report Reviewed by me
Labs: Labs Reviewed by me
Old Records: Reviewed
--- NOTE | 2025-07-01 08:00 | PTCARENOTE ---
Pt AAOx3, VSS, and Vpaced on monitor. RA clear throughout; GI and WNL; skin CDI; PIV CDI; see worklist for detailed assessment
[2025-07-01] MEDS: LOPRESSOR 25 MG PO ×2 (08:40→19:34)
[2025-07-01] MEDS: PREVACID 15 MG PO (08:40)
[2025-07-01] MEDS: COLCHICINE 0.6 MG PO ×2 (08:40→19:34)
[2025-07-01] MEDS: LIPITOR 10 MG PO (08:40)
[2025-07-01] MEDS: NEURONTIN 300 MG PO (08:40)
[2025-07-01] MEDS: ALDACTONE 12.5 MG PO (08:41)
[2025-07-01 09:29] LABS: Glycohemoglobin (HgbA1c) 5.0 % (4.0-5.9)
--- NOTE | 2025-07-01 10:17 | CM ---
Reviewed chart. Met with Mrs. Roman to review discharge plans. She states prior to admission she resides alone in a second floor apartment with an elevator. She states prior to admission she ambulates with a single point cane. She states she has
two single point cane and a rollator at home. She states she has has [facility] in the past. She states she has been in SNF/Rehab. in the past- [facility] and [facility]. She states she has a prescription plan with and uses
[facility]. Will need to see her current functional level to see if she will have any skilled care needs. Medical work-up in progress. The dsicharge plan is to return home with VNA Services verses SNF Rehab. if indicated when medically
stable.
[2025-07-01 11:50] LABS: Glucose - Point of Care 89 mg/dl (70-99)
--- NOTE | 2025-07-01 14:49 | W.PN.HOSP.TC ---
Today's Communication/Plan
-
Monitor vitals
see plan
Continue metoprolol
Echo
Replete magnesium
Assessment / Plan
Assessment / Plan
General: Comfortable and Conversant; No Pain, Fever or Chills
HEENT: NormoCephalic, Anicteric, Moist mucous membranes, Atraumatic, PERRLA, [place] Conjunctivae and No Ptosis
Respiratory: Clear; No Wheezes, Rales or Rhonchi
Cardiac: S1/S2
GI: Soft, Non Tender, Non Distended, Normal Bowel Sounds
Musculoskeletal: No Edema
Neuro: AO x 3, No Motor Deficits, Nonfocal/grossly intact
Psych: Calm
Intermittent NSVT/VT per interrogated pacemaker
#Permanent pacemaker secondary to complete heart block�interrogated showing multiple episodes of VT/NSVT
Cardiology following
- Will increase metoprolol from 12.5 mg twice daily to 25 mg twice daily for better HR control
-Hold losartan 25mg hs due to hypotension
- BNP elevated 1300; however x-ray without fluid overload
Echo 07/01 pending
EKG: Atrial sensed ventricular paced rhythm 80 bpm otherwise normal
#Mild hypotension/HTN benign
BP 104/60 > 118/65
- Will increase metoprolol from 12.5 mg twice daily to 25 mg twice daily for better HR control
-Hold losartan 25 mg hs due to hypotension
Check orthostatics
#Paroxysmal A-fib
-Continue Xarelto
Continue metoprolol
#CKD 3 B
Monitor
#HLD
Continue atorvastatin 10 mg daily
#Chronic heart failure preserved EF
I/O, daily weight
Continue spironolactone 12.5 mg in a.m.
2D echo 01/12/2024: EF 65 to 70% normal LV S LVSF mild to moderate mitral stenosis, status post TAVR peak mean gradients 9/4 mmHg
#History of pericardial effusion/tamponade treated with pericardiocentesis 2022
#Aortic stenosis status post TAVR
#DM 2
Accu-Cheks with SSI, check HgbA1c
Hold metformin 1000mg twice daily
- hold repaglinide 0.5 mg with meals
#Lumbar laminectomy/fusion with spine stimulator
#GERD/gastric ulcer
- Continue Prilosec 20 mg a.m., Pepcid 20 mg at bedtime
#Vertigo
#Gout
- Continue colchicine
#Restless leg syndrome
- cont gabapentin 300 mg a.m., 600 mg at bedtime, Cymbalta 30 mg at bedtime
- Patient on Ubrelvy 100 mg daily
#Chronic TMJ pain
Gets Botox every 3 months bilateral TMJ joints
DVT prophylaxis
Continue Xarelto
Full code
Anticipated Discharge: 24 - 48 hours
Subjective/Interval History
-
Date of Service: July 01, 2025
has Fatigue
Objective Data
-
Labs:
Laboratory Results
07/01/25
05:24
WBC 5.7
Hgb 13.7
Hct 40.5
Plt Count 182
Sodium 137
Potassium 4.0
Chloride 108 H
Carbon Dioxide 20 L
BUN 34 H
Creatinine 0.9
Glucose 82
Calcium 9.6
Total Bilirubin 0.6
AST 22
ALT < 10
Alkaline Phosphatase 51
Vital Signs:
Vital Signs
Temp Pulse Resp BP Pulse Ox
97.2 F 69 17 131/75 96
07/01/25 11:25 07/01/25 09:00 07/01/25 11:25 07/01/25 07:05 07/01/25 11:25
I&O
06/30/25 07/01/25 07/02/25
06:59 06:59 06:59
Intake Total 240 / 240
Balance 240 / 240
--- NOTE | 2025-07-01 14:56 | CARDSERVLU ---
Echocardiogram with Lumason completed after protocol screening completed. Allergies verified.
Patent IV site: _R AC____
IV site flushed with 0.9% NaCl pre and post administration.
Diluted bolus method utilized to enhance visualization of ventricular monzon.
Total volume given: __2.5__ mL
Patient tolerated all procedures well without complications.
[2025-07-01] MEDS: MAGNESIUM SULFATE 102 GRAMS IV (15:55)
[2025-07-01 15:59] LABS: Glucose - Point of Care 100 mg/dl (70-99)
[2025-07-01] MEDS: XARELTO 20 MG PO (18:15)
--- NOTE | 2025-07-01 19:20 | PTCARENOTE ---
no change from previous assessment
[2025-07-01] MEDS: CYMBALTA DELAYED RELEASE 30 MG PO (22:03)
[2025-07-01] MEDS: NEURONTIN 600 MG PO (22:03)
[2025-07-01] MEDS: PEPCID 20 MG PO (22:05)
[2025-07-01 22:19] LABS: Glucose - Point of Care 97 mg/dl (70-99)
[2025-07-02] VITALS (13 sets, daily range): BP systolic 104–135; BP diastolic 62–115; PULSE 64; O2SAT 98; BMI 27.9
--- NOTE | 2025-07-02 00:52 | PTCARENOTE ---
Received patient at change of shift. V paced on the monitor, HR in the 60s. No complaints from pt at this time, call cotton within reach.
[2025-07-02 03:40] LABS: Hematocrit 42.6 % (37.0-47.0); Hemoglobin 14.6 g/dL (12.0-16.0); Mean Corp Hgb Conc. 34.3 g/dL (33.0-37.0); Mean Corpuscular Volume 88.6 fL (81.0-99.0); Nucleated Red Blood Cells % 0 %; Platelet Count 186 10^3/uL (130-400); Red Cell Dist. Width 13.3 % (11.5-14.5)
[2025-07-02 04:01] LABS: ALT (SGPT) 13 U/L (0-35); AST (SGOT) 28 U/L (14-36); Albumin 4.3 g/dl (3.5-5.0); Alkaline Phosphatase 57 U/L (38-126); Blood Urea Nitrogen 26 mg/dl (7-17); Calcium 9.6 mg/dl (8.4-10.2); Carbon Dioxide 24 mmol/L (22-30); Chloride 106 mmol/L (98-107); Estimated Creatinine Clearance 47 ml/min; Glucose 95 mg/dl (70-99); Magnesium 1.8 mg/dl (1.6-2.3); Potassium 3.9 mmol/L (3.5-5.1); Sodium 138 mmol/L (135-145); Total Protein 6.8 g/dl (6.3-8.2); eGFR > 60.00
[2025-07-02 08:11] LABS: Glucose - Point of Care 90 mg/dl (70-99)
--- NOTE | 2025-07-02 08:54 | CM ---
Reviewed chart. Met with Mrs. Roman to review the medical team recommendation of SNF/Rehab. We reviewed SNF's in the area where she was on before. She states she would prefer to go home with her daughter and [facility] . She states she
has uses [facility] in the past. [facility]. Referral sent. She states her daughter resides in a two story home with several steps to enter. She states she has steps to get to the
family room and steps to bedroom/full bathroom Reviewed if I could make referral to SNF's as back-up plan if she could not go home. She will think about it. Medical work-up in progress. The discharge plan is to return home withh er daughter and
[facility] verses SNF/Rehab. if bed available and if she is agreeable when medically stable
[2025-07-02] MEDS: NEURONTIN 300 MG PO (09:07)
[2025-07-02] MEDS: LIPITOR 10 MG PO (09:08)
[2025-07-02] MEDS: COLCHICINE 0.6 MG PO ×2 (09:08→20:30)
[2025-07-02] MEDS: LOPRESSOR 25 MG PO ×2 (09:08→20:30)
[2025-07-02] MEDS: ALDACTONE 12.5 MG PO (09:08)
[2025-07-02] MEDS: PREVACID 15 MG PO (09:09)
[2025-07-02] MEDS: FLUSH (NSS) 1 FLUSH IV (09:10)
[2025-07-02] MEDS: KCL 40 MEQ PO (10:25)
[2025-07-02] MEDS: MAGNESIUM SULFATE 50 IV (10:25)
--- NOTE | 2025-07-02 11:15 | PTCARENOTE ---
Patient was seen by cardiology but is unclear of the discussion. Dr. Guadalupe now in to see her, will have PT come and evaluate her. Patient is receiving mag rider as ordered and K+ repleted with PO dose as ordered.
[2025-07-02 11:36] LABS: Glucose - Point of Care 116 mg/dl (70-99)
--- NOTE | 2025-07-02 14:13 | W.PN.HOSP.TC ---
Today's Communication/Plan
-
monitor vitals
see plan
cw metoprolol
still with subjective sob at times; check CXR tomorrow
pt to see again
check orthos
Assessment / Plan
Assessment / Plan
General: Comfortable and Conversant; No Pain, Fever or Chills
HEENT: NormoCephalic, Anicteric, Moist mucous membranes, Atraumatic, PERRLA, [place] Conjunctivae and No Ptosis
Respiratory: Clear; No Wheezes, Rales or Rhonchi
Cardiac: S1/S2
GI: Soft, Non Tender, Non Distended, Normal Bowel Sounds
Musculoskeletal: No Edema
Neuro: AO x 3, No Motor Deficits, Nonfocal/grossly intact
Psych: Calm
Intermittent NSVT/VT per interrogated pacemaker
#Permanent pacemaker secondary to complete heart block�interrogated showing multiple episodes of VT/NSVT
Cardiology following
- Will increase metoprolol from 12.5 mg twice daily to 25 mg twice daily for better HR control
-Hold losartan 25mg hs due to hypotension
- BNP elevated 1300; however x-ray without fluid overload
Echo 07/01 pending
EKG: Atrial sensed ventricular paced rhythm 80 bpm otherwise normal
#Mild hypotension/HTN benign
BP 104/60 > 118/65
- Will increase metoprolol from 12.5 mg twice daily to 25 mg twice daily for better HR control
-Hold losartan 25 mg hs due to hypotension
Check orthostatics
#Paroxysmal A-fib
-Continue Xarelto
Continue metoprolol
#CKD 3 B
Monitor
#HLD
Continue atorvastatin 10 mg daily
#Chronic heart failure preserved EF
I/O, daily weight
Continue spironolactone 12.5 mg in a.m.
2D echo 01/12/2024: EF 65 to 70% normal LV S LVSF mild to moderate mitral stenosis, status post TAVR peak mean gradients 9/4 mmHg
#History of pericardial effusion/tamponade treated with pericardiocentesis 2022
#Aortic stenosis status post TAVR
#DM 2
Accu-Cheks with SSI, HgbA1c 5
Hold metformin 1000mg twice daily
- hold repaglinide 0.5 mg with meals
#Lumbar laminectomy/fusion with spine stimulator
#GERD/gastric ulcer
- Continue Prilosec 20 mg a.m., Pepcid 20 mg at bedtime
#Vertigo
#Gout
- Continue colchicine
#Restless leg syndrome
- cont gabapentin 300 mg a.m., 600 mg at bedtime, Cymbalta 30 mg at bedtime
- Patient on Ubrelvy 100 mg daily
#Chronic TMJ pain
Gets Botox every 3 months bilateral TMJ joints
DVT prophylaxis
Continue Xarelto
Full code
Anticipated Discharge: Within 24 hours
Subjective/Interval History
-
Date of Service: July 02, 2025
Still feels short of breath
Objective Data
-
Labs:
Laboratory Results
07/02/25
03:25
WBC 6.1
Hgb 14.6
Hct 42.6
Plt Count 186
Sodium 138
Potassium 3.9
Chloride 106
Carbon Dioxide 24
BUN 26 H
Creatinine 0.8
Glucose 95
Calcium 9.6
Total Bilirubin 0.5
AST 28
ALT 13
Alkaline Phosphatase 57
Vital Signs:
Vital Signs
Temp Pulse Resp BP Pulse Ox
97.7 F 62 16 117/70 99
07/02/25 11:13 07/02/25 11:09 07/02/25 11:10 07/02/25 11:09 07/02/25 11:10
I&O
07/01/25 07/02/2507/03/25
06:59 06:59 06:59
Intake Total 240 / 240 290 / 290
Balance 240 / 240 290 / 290
--- NOTE | 2025-07-02 14:19 | W.PN.CD ---
Today's Communication / Plan
-
- Holding Losartan
- Increased Metoprolol for now.
Impression / Plan
-
80 y/o female with s/p TAVR 2022, hypertension, HFpEF, PUD, neurostimulator in place, LBBB, PAF on Xarelto, hx pericardial effusion/tamponade with pericardiocentesis, DM, CHB s/p pacemaker 2022 who is here for evaluation of episode of SVT and
NSVT.
NSVT:
- Increasing frequency. no more VT since admission.
- Possible precipitating factor like viral infection
- ECHO 07/01/25 -
1. Normal biventricular size and systolic function. No wall motion abnormalities.
2. Status post TAVR, well-seated, no AR, mean gradient 3 mmHg.
3. Mild to moderate calcific mitral stenosis with mild mitral regurgitation.
- Hypomagnesemia - replace
- Keep K >4.0 and Mg > 2.0
- Normal Cors in 2022 - Unlikely to have any significant disease (if last 80 years were not able to cause any CAD, these last two years under treatment are not likely to cause it)
- Trop 0.026 - normal
- Increase metoprolol - 12.5 to 25 mg BID
- Hold losartan
- if no etiology noted, may have to add AAD like Amiodarone
- Needs closer follow up at cardiology office
Resp distress
- Mild distress - improved from yesterday,
- Normal EKG and tele with continued dyspnea
- CXR is clear
- Possible upper resp infection - infl A and B are negative.
SVT
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
- On Xarelto
- increasing Toprol
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
- Frequent non sustained burst of SVT noted.
- Possible ablation as outpatient.
Pacemaker:
-battery/leads stable
-follow tele
Hx TAVR, HFpEF, pericardial effusion:
-checking echo
-not overloaded
Gout
- On Colchicine.
Physical Exam
Vital Signs/Labs
Vital Signs
Temp Pulse Resp BP Pulse Ox
97.7 F 62 16 117/70 99
07/02/25 11:13 07/02/25 11:09 07/02/25 11:10 07/02/25 11:09 07/02/25 11:10
07/01/25 07/02/25 07/03/25
06:59 06:59 06:59
Actual Weight 67.3 kg 66.9 kg
07/02/25 03:25
07/02/25 03:25
Magnesium 1.8 mg/dl (1.6-2.3) 07/02/25 03:25
Triglycerides 61 mg/dl (10-149) 07/01/25 05:24
LDL Cholesterol, Calc 29 mg/dl 07/01/25 05:24
VLDL Cholesterol, Calc 12 mg/dl (0-30) 07/01/25 05:24
HDL Cholesterol 58 mg/dl 07/01/25 05:24
06/30/25
16:47
Ztq-V-Rzndjnmbnmq Pept 1570
LAB Results
06/30/25
16:47
Troponin I 0.026
Physical Exam
Constitutional: No acute distress and Comfortable
EENT: Anicteric and Moist mucous membranes
Cardiovascular: Rhythm & rate is regular, Pedal edema is absent and JVD pressure is normal
Respiratory: Respiratory effort normal and Lungs clear to auscul.
GI: Soft, Distention absent and Non tender
Neuro/Psych: Alert, Oriented and AO x 3
Other: Cardiac Device Site
Data Reviewed
-
Date of Service: July 02, 2025
Medical Decision Making: Reviewed Test Results, Test Interpretation and Review of Case with other Provider
EKG: Tracing Personally Visualized and interpreted
Echo: Report Reviewed by me
X-Ray/CT/US/MRI/NUC/PET: Image Personally Visualized and interpreted
Medical Tests (PFT, Pathology etc): Discussed with Patient
Labs: Labs Reviewed by me
Old Records: Reviewed
--- NOTE | 2025-07-02 16:37 | PTCARENOTE ---
Orthostatic VS negative, patient seen by PT, ambulated in the lester with single point cane. Daughter Betzy at the bedside and updated.
[2025-07-02] MEDS: XARELTO 20 MG PO (17:20)
[2025-07-02 18:16] LABS: Glucose - Point of Care 108 mg/dl (70-99)
--- NOTE | 2025-07-02 20:30 | PTCARENOTE ---
Assumed care of patient at change of shift. AAOx3, VSS, V-Paced on tele. Patient reports being SOB at times with an occasional productive cough, lungs clear, 99% on room air. Plan of care discussed, call cotton within reach.
[2025-07-02] MEDS: CYMBALTA DELAYED RELEASE 30 MG PO (22:05)
[2025-07-02] MEDS: PEPCID 20 MG PO (22:05)
[2025-07-02] MEDS: NEURONTIN 600 MG PO (22:05)
[2025-07-02 22:19] LABS: Glucose - Point of Care 103 mg/dl (70-99)
[2025-07-03] VITALS (10 sets, daily range): BP systolic 93–130; BP diastolic 55–76; PULSE 62–72; BMI 28.1
[2025-07-03 04:44] LABS: Hematocrit 43.6 % (37.0-47.0); Hemoglobin 15.4 g/dL (12.0-16.0); Mean Corp Hgb Conc. 35.3 g/dL (33.0-37.0); Mean Corpuscular Volume 89.5 fL (81.0-99.0); Nucleated Red Blood Cells % 0 %; Platelet Count 201 10^3/uL (130-400); Red Cell Dist. Width 13.1 % (11.5-14.5)
[2025-07-03 05:05] LABS: ALT (SGPT) 15 U/L (0-35); AST (SGOT) 30 U/L (14-36); Albumin 4.6 g/dl (3.5-5.0); Alkaline Phosphatase 77 U/L (38-126); Blood Urea Nitrogen 31 mg/dl (7-17); Calcium 9.8 mg/dl (8.4-10.2); Carbon Dioxide 18 mmol/L (22-30); Chloride 107 mmol/L (98-107); Estimated Creatinine Clearance 42 ml/min; Glucose 121 mg/dl (70-99); Magnesium 2.0 mg/dl (1.6-2.3); Potassium 4.7 mmol/L (3.5-5.1); Sodium 138 mmol/L (135-145); Total Protein 7.3 g/dl (6.3-8.2); eGFR > 60.00
--- NOTE | 2025-07-03 08:29 | W.PN.CD ---
Today's Communication / Plan
-
- Will add Lasix and SGLT2-I
- Continue increased beta yue
Impression / Plan
-
80 y/o female with s/p TAVR 2022, hypertension, HFpEF, PUD, neurostimulator in place, LBBB, PAF on Xarelto, hx pericardial effusion/tamponade with pericardiocentesis, DM, CHB s/p pacemaker 2022 who is here for evaluation of episode of SVT and
NSVT.
Palpations, NSVT vs SVT.
- Intracardiac EGMs look like SVT but VT with 1:1 retrograde conduction is possible, EPS would be need to confirm
- Hx of PAF: Device shows no AFib from 06/10/2025 through interrogation on 06/21/2025, and very low burden in last 1 year
- Increase BB makes sense, later can consider EPS
Suspect acute on chronic HFpEF
- Cannot rule some lung disease as well
- On Aldactone
- Will add lasix and SGLT2-I
- pBNP 1570 is the highest it has been
- She endorses orthopnea, no LE edema
- LVEDP 20 at time of pre-TAVR cath
- CXR not read as heart failure
Hx TAVR
Hx of heart block after TAVR, MDT pacer in place
Gout
Subjective:
No CP. Dyspnea improved. No palps.
ECHO 07/01/25
SUMMARY
1. Normal biventricular size and systolic function. No wall motion abnormalities.
2. Status post TAVR, well-seated, no AR, mean gradient 3 mmHg.
3. Mild to moderate calcific mitral stenosis with mild mitral regurgitation.
4. No pericardial effusion.
5. No significant change from study dated 01/12/2024.
Cath 09/2022: Normal Cors
Physical Exam
Vital Signs/Labs
Vital Signs
Temp Pulse Resp BP Pulse Ox
97.5 F 63 16 122/74 97
07/03/25 07:02 07/03/25 06:00 07/03/25 07:02 07/03/25 03:58 07/03/25 07:02
07/02/25 07/03/25 07/04/25
06:59 06:59 06:59
Actual Weight 66.9 kg 67.4 kg
07/03/25 04:18
07/03/25 04:18
Magnesium 2.0 mg/dl (1.6-2.3) 07/03/25 04:18
Triglycerides 61 mg/dl (10-149) 07/01/25 05:24
LDL Cholesterol, Calc 29 mg/dl 07/01/25 05:24
VLDL Cholesterol, Calc 12 mg/dl (0-30) 07/01/25 05:24
HDL Cholesterol 58 mg/dl 07/01/25 05:24
06/30/25
16:47
Sli-G-Gntdvesgdom Pept 1570
LAB Results
06/30/25
16:47
Troponin I 0.026
Physical Exam
Constitutional: No acute distress
EENT: Anicteric
Cardiovascular: Rhythm & rate is regular and Pedal edema is absent
Respiratory: Respiratory effort normal and Rhonchi Absent
GI: Soft, Distention absent and Non tender
Neuro/Psych: AO x 3
Data Reviewed
-
Date of Service: July 03, 2025
[2025-07-03 08:57] LABS: Glucose - Point of Care 108 mg/dl (70-99)
[2025-07-03] MEDS: NEURONTIN 300 MG PO (09:27)
[2025-07-03] MEDS: COLCHICINE 0.6 MG PO ×2 (09:27→19:53)
[2025-07-03] MEDS: LIPITOR 10 MG PO (09:28)
[2025-07-03] MEDS: FARXIGA 10 MG PO (09:28)
[2025-07-03] MEDS: LASIX 20 MG PO (09:28)
[2025-07-03] MEDS: ALDACTONE 12.5 MG PO (09:29)
[2025-07-03] MEDS: PREVACID 15 MG PO (09:29)
[2025-07-03] MEDS: LOPRESSOR 25 MG PO ×2 (09:29→19:53)
[2025-07-03] MEDS: FLUSH (NSS) 1 FLUSH IV (09:30)
--- NOTE | 2025-07-03 09:30 | CM ---
Addendum entered by Terrie Harper RN 07/03/25 14:12:
Reviewed pricing with the patient and she is agreeable to Jardiance. I will place a free 30 day coupon in the patient's red discharge folder
Original Note:
[facility]ricing on [facility] through the patient's prescription plan, ID#[id number] ph# [phone], patient will need a prior auth called into [phone] and it will cost the patient $76 for a 30 day and $76 for mail order 90 day supply.
Jardiance does not need a prior auth and will cost the patient $43 for a 30 day supply. I will place a free 30 day Jardiance in the patient's red discharge folder.
[2025-07-03] MEDS: MIRALAX 17 GRAMS PO (10:24)
[2025-07-03] MEDS: COLACE 100 MG PO ×2 (10:24→19:53)
--- NOTE | 2025-07-03 10:55 | PTCARENOTE ---
Patient sent for CXR this morning, still says she has some episodes of sob, not related to activity. Breath sounds are clear, given new medications as ordered by cardiology (talib and nakia). Patient anxious to go home today.
[2025-07-03 11:58] LABS: Glucose - Point of Care 95 mg/dl (70-99)
--- NOTE | 2025-07-03 13:42 | PTCARENOTE ---
Patient was on the phone with her daughter Betzy and says her daughter would like to speak with the doctor. States she has questions and wants to speak with Dr. Guadalupe, TT to Dr. Guadalupe to telephone her daughter with update and to answer questions she
has.
--- NOTE | 2025-07-03 14:13 | CM ---
Chart reviewed. Patient is independent of ADLS, lives alone in a 2nd floor apartment, elevator access, ambulates with a SPC and also has a rollator. Plan is for the patient to go to her daughters house when she is medically stable for discharge
with Michelle LO CM to follow
--- NOTE | 2025-07-03 14:19 | W.PN.HOSP.TC ---
Today's Communication/Plan
-
Monitor vital signs see plan
Continue with Óscar Ruelas
Continue metoprolol
Discussed with daughter
Assessment / Plan
Assessment / Plan
General: Comfortable and Conversant; No Pain, Fever or Chills
HEENT: NormoCephalic, Anicteric, Moist mucous membranes, Atraumatic, PERRLA, [place] Conjunctivae and No Ptosis
Respiratory: Clear; No Wheezes, Rales or Rhonchi
Cardiac: S1/S2
GI: Soft, Non Tender, Non Distended, Normal Bowel Sounds
Musculoskeletal: No Edema
Neuro: AO x 3, No Motor Deficits, Nonfocal/grossly intact
Psych: Calm
Intermittent NSVT/VT per interrogated pacemaker
#Permanent pacemaker secondary to complete heart block�interrogated showing multiple episodes of VT/NSVT
Cardiology following
- Will increase metoprolol from 12.5 mg twice daily to 25 mg twice daily for better HR control
-Hold losartan 25mg hs due to hypotension
- BNP elevated 1300; however x-ray without fluid overload
Echo 07/01 with preserved EF, status post TAVR, well-seated, no AR
EKG: Atrial sensed ventricular paced rhythm 80 bpm otherwise normal
#Mild hypotension/HTN benign
- Will increase metoprolol from 12.5 mg twice daily to 25 mg twice daily for better HR control
-Hold losartan 25 mg hs due to hypotension
Check orthostatics, currently negative
Suspect acute on chronic CHF with preserved EF
Does have some orthopnea, discussed with cardiology. Added Lasix. Farxiga
#Paroxysmal A-fib
-Continue Xarelto
Continue metoprolol
#CKD 3 B
Monitor
#HLD
Continue atorvastatin 10 mg daily
#Chronic heart failure preserved EF
I/O, daily weight
Continue spironolactone 12.5 mg in a.m.
2D echo 01/12/2024: EF 65 to 70% normal LV S LVSF mild to moderate mitral stenosis, status post TAVR peak mean gradients 9/4 mmHg
#History of pericardial effusion/tamponade treated with pericardiocentesis 2022
#Aortic stenosis status post TAVR
#DM 2
Accu-Cheks with SSI, HgbA1c 5
Hold metformin 1000mg twice daily
- hold repaglinide 0.5 mg with meals
Believe we can even hold these on discharge
Appears that patient is also on Mounjaro, should discontinue
#Lumbar laminectomy/fusion with spine stimulator
#GERD/gastric ulcer
- Continue Prilosec 20 mg a.m., Pepcid 20 mg at bedtime
#Vertigo
#Gout
- Continue colchicine
#Restless leg syndrome
- cont gabapentin 300 mg a.m., 600 mg at bedtime, Cymbalta 30 mg at bedtime
- Patient on Ubrelvy 100 mg daily
#Chronic TMJ pain
Gets Botox every 3 months bilateral TMJ joints
DVT prophylaxis
Continue Xarelto
Full code
Anticipated Discharge: Within 24 hours
Subjective/Interval History
-
Date of Service: July 03, 2025
has subjective sob
Objective Data
-
Labs:
Laboratory Results
07/03/25
04:18
WBC 6.8
Hgb 15.4
Hct 43.6
Plt Count 201
Sodium 138
Potassium 4.7
Chloride 107
Carbon Dioxide 18 L
BUN 31 H
Creatinine 0.9
Glucose 121 H
Calcium 9.8
Total Bilirubin 0.4
AST 30
ALT 15
Alkaline Phosphatase 77
Vital Signs:
Vital Signs
Temp Pulse Resp BP Pulse Ox
97.5 F 65 17 130/76 98
07/03/25 11:03 07/03/25 12:00 07/03/25 11:03 07/03/25 11:05 07/03/25 11:03
I&O
07/02/25 07/03/25 07/04/25
06:59 06:59 06:59
Intake Total 530 / 530 360 / 360
Balance 530 / 530 360 / 360
[2025-07-03] MEDS: XARELTO 20 MG PO (18:03)
[2025-07-03 22:01] LABS: Glucose - Point of Care 100 mg/dl (70-99)
[2025-07-03] MEDS: CYMBALTA DELAYED RELEASE 30 MG PO (22:22)
[2025-07-03] MEDS: PEPCID 20 MG PO (22:22)
[2025-07-03] MEDS: NEURONTIN 600 MG PO (22:22)
--- NOTE | 2025-07-04 00:15 | PTCARENOTE ---
Pt. in NSR rate mostly 60's this shift with very occasional pacing, VSS. No complaints of chest discomfort or SOB. OOB to chair and ambulatory in room with assist x 1. Hoping to go home in AM.
[2025-07-04 03:13] VITALS: BP 115/75
[2025-07-04 04:50] LABS: Blood Urea Nitrogen 31 mg/dl (7-17); Calcium 9.6 mg/dl (8.4-10.2); Carbon Dioxide 25 mmol/L (22-30); Chloride 105 mmol/L (98-107); Estimated Creatinine Clearance 48 ml/min; Glucose 90 mg/dl (70-99); Magnesium 1.8 mg/dl (1.6-2.3); Potassium 4.1 mmol/L (3.5-5.1); Sodium 138 mmol/L (135-145); eGFR > 60.00
[2025-07-04 07:55] VITALS: BMI 27.9
[2025-07-04] MEDS: ALDACTONE 12.5 MG PO (07:56)
[2025-07-04 07:58] VITALS: BP 113/78
[2025-07-04] MEDS: NEURONTIN 300 MG PO (07:59)
[2025-07-04] MEDS: LIPITOR 10 MG PO (07:59)
[2025-07-04] MEDS: PREVACID 15 MG PO (08:00)
[2025-07-04] MEDS: FARXIGA 10 MG PO (08:00)
[2025-07-04] MEDS: LOPRESSOR 25 MG PO (08:00)
[2025-07-04] MEDS: COLACE 100 MG PO (08:01)
[2025-07-04] MEDS: LASIX 20 MG PO (08:01)
[2025-07-04] MEDS: COLCHICINE 0.6 MG PO (08:02)
[2025-07-04] MEDS: MIRALAX 17 GRAMS PO (08:03)
[2025-07-04 08:19] LABS: Glucose - Point of Care 109 mg/dl (70-99)
--- NOTE | 2025-07-04 08:47 | W.PN.CD ---
Today's Communication / Plan
-
Doing well
Cardiology will sign off
F/u with Dr. Veronica as planned 07/30/2024 at 2:20 PM
Impression / Plan
-
80 y/o female with s/p TAVR 2022, hypertension, HFpEF, PUD, neurostimulator in place, LBBB, PAF on Xarelto, hx pericardial effusion/tamponade with pericardiocentesis, DM, CHB s/p pacemaker 2022 who is here for evaluation of episode of SVT and
NSVT.
Palpations, NSVT vs SVT.
- Intracardiac EGMs look like SVT but VT with 1:1 retrograde conduction is possible, EPS would be need to confirm
- Hx of PAF: Device shows no AFib from 06/10/2025 through interrogation on 07/01/2025, and very low burden in last 1 year
- Tele last 48 hours is benign
- Increase BB makes sense, later can consider EPS => continue Lopressor 25 BID => ok to move to Metoprolol ER 50 daily
Suspect acute on chronic HFpEF
- Cannot rule some lung disease as well
- On Aldactone
- Now on oral lasix and SGLT2-I
- pBNP 1570 is the highest it has been
- She endorses orthopnea, no LE edema => breathing is better
- LVEDP 20 at time of pre-TAVR cath
- CXR not read as heart failure
Hx TAVR
Hx of heart block after TAVR, MDT pacer in place
Gout
Subjective:
No CP. Dyspnea improved. No palps.
ECHO 07/01/25
SUMMARY
1. Normal biventricular size and systolic function. No wall motion abnormalities.
2. Status post TAVR, well-seated, no AR, mean gradient 3 mmHg.
3. Mild to moderate calcific mitral stenosis with mild mitral regurgitation.
4. No pericardial effusion.
5. No significant change from study dated 01/12/2024.
Cath 09/2022: Normal Cors
Physical Exam
Vital Signs/Labs
Vital Signs
Temp Pulse Resp BP Pulse Ox
97.3 F 65 14 113/78 97
07/04/25 03:14 07/04/25 08:00 07/04/25 03:14 07/04/25 07:58 07/04/25 03:14
07/03/25 07/04/25 07/05/25
06:59 06:59 06:59
Actual Weight 67.4 kg 67 kg
07/03/25 04:18
07/04/25 03:57
Magnesium 1.8 mg/dl (1.6-2.3) 07/04/25 03:57
Triglycerides 61 mg/dl (10-149) 07/01/25 05:24
LDL Cholesterol, Calc 29 mg/dl 07/01/25 05:24
VLDL Cholesterol, Calc 12 mg/dl (0-30) 07/01/25 05:24
HDL Cholesterol 58 mg/dl 07/01/25 05:24
06/30/25
16:47
Qcp-P-Htoaebwnyld Pept 1570
Physical Exam
Constitutional: No acute distress
Cardiovascular: Rhythm & rate is regular and Pedal edema is absent
Respiratory: Respiratory effort normal and Lungs clear to auscul.
GI: Soft and Distention absent
Neuro/Psych: Alert
Data Reviewed
-
Date of Service: July 04, 2025
--- NOTE | 2025-07-04 09:09 | PTCARENOTE ---
Pt ambulating in room, gait steady, offers no complaints, she denies any SOB or dyspnea. VSS
--- NOTE | 2025-07-04 11:03 | W.PN.HOSP.TC ---
Today's Communication/Plan
-
Monitor vital signs see plan
Feeling better
Discussed with patient to stop Mounjaro. Also hold metformin and repaglinide on discharge
Discharge today
Time of discharge 38 minutes
Assessment / Plan
Assessment / Plan
General: Comfortable and Conversant; No Pain, Fever or Chills
HEENT: NormoCephalic, Anicteric, Moist mucous membranes, Atraumatic, PERRLA, [place] Conjunctivae and No Ptosis
Respiratory: Clear; No Wheezes, Rales or Rhonchi
Cardiac: S1/S2
GI: Soft, Non Tender, Non Distended, Normal Bowel Sounds
Musculoskeletal: No Edema
Neuro: AO x 3, No Motor Deficits, Nonfocal/grossly intact
Psych: Calm
Intermittent NSVT/VT per interrogated pacemaker
#Permanent pacemaker secondary to complete heart block�interrogated showing multiple episodes of VT/NSVT
Cardiology following
- Will increase metoprolol from 12.5 mg twice daily to 25 mg twice daily for better HR control
-Hold losartan 25mg hs due to hypotension. Hold on discharge since on other medications
- BNP elevated 1300; however x-ray without fluid overload
Echo 07/01 with preserved EF, status post TAVR, well-seated, no AR
EKG: Atrial sensed ventricular paced rhythm 80 bpm otherwise normal
#Mild hypotension/HTN benign
- Now on XR metoprolol
-Hold losartan 25 mg hs due to hypotension
Check orthostatics, currently negative
Suspect acute on chronic CHF with preserved EF
Does have some orthopnea, discussed with cardiology. Added Lasix. on farxiga. Jardiance is more cost effective, will switch to Jardiance on discharge. Cardiology aware
#Paroxysmal A-fib
-Continue Xarelto
Continue metoprolol
#CKD 3 B
Monitor
#HLD
Continue atorvastatin 10 mg daily
#Chronic heart failure preserved EF
I/O, daily weight
Continue spironolactone 12.5 mg in a.m.
2D echo 01/12/2024: EF 65 to 70% normal LV S LVSF mild to moderate mitral stenosis, status post TAVR peak mean gradients 9/4 mmHg
#History of pericardial effusion/tamponade treated with pericardiocentesis 2022
#Aortic stenosis status post TAVR
#DM 2
Accu-Cheks with SSI, HgbA1c 5
Hold metformin 1000mg twice daily
- hold repaglinide 0.5 mg with meals
Believe we can even hold these on discharge
Appears that patient is also on Mounjaro, should discontinue. Discussed with patient
#Lumbar laminectomy/fusion with spine stimulator
#GERD/gastric ulcer
- Continue Prilosec 20 mg a.m., Pepcid 20 mg at bedtime
#Vertigo
#Gout
- Continue colchicine
#Restless leg syndrome
- cont gabapentin 300 mg a.m., 600 mg at bedtime, Cymbalta 30 mg at bedtime
- Patient on Ubrelvy 100 mg daily
#Chronic TMJ pain
Gets Botox every 3 months bilateral TMJ joints
DVT prophylaxis
Continue Xarelto
Full code
Anticipated Discharge: Today
Subjective/Interval History
-
Date of Service: July 04, 2025
denies pain
Objective Data
-
Labs:
Laboratory Results
07/04/25
03:57
Sodium 138
Potassium 4.1
Chloride 105
Carbon Dioxide 25
BUN 31 H
Creatinine 0.8
Glucose 90
Calcium 9.6
Vital Signs:
Vital Signs
Temp Pulse Resp BP Pulse Ox
97.7 F 61 16 113/78 100
07/04/25 08:00 07/04/25 08:00 07/04/25 08:00 07/04/25 07:58 07/04/25 08:47
I&O
07/03/25 07/04/25 07/05/25
06:59 06:59 06:59
Intake Total 530 / 530 1560 / 1560
Output Total 400 / 400
Balance 530 / 530 1560 / 1560 -400 / -400
--- NOTE | 2025-07-04 11:11 | W.DCSUMMARY ---
Discharge Summary
Discharge Data
Date of Admission: 06/30/25
Date of Discharge: 07/04/25
-
Pending Results: No
Hospital Course
80-year-old female with past medical history of CHF, paroxysmal atrial fibrillation, CKD stage IIIb, hyperlipidemia, history of pericardial effusion/tamponade, aortic stenosis status post TAVR, diabetes mellitus, lumbar laminectomy/fusion with
spinal stimulator, GERD, gastric ulcer, vertigo, gout, restless leg syndrome, chronic TMJ pain, hypertension, complete heart block status post permanent pacemaker came to the hospital with fatigue and weakness. Per pacemaker interrogation patient
had intermittent episodes of NSVT/ventricular tachycardia. Patient was seen by cardiology throughout hospitalization. Patient metoprolol was increased on this hospitalization. His BNP was also elevated however his chest x-ray did not look fluid
overloaded. Patient did had subjective shortness of breath which was likely thought was possibly secondary to acute on chronic CHF exacerbation. Patient was then started on Lasix along with fark [employer]. Due to cost patient chose to prefer Jardiance
on discharge. Once her symptoms continue to improve, she was then discharged home with instructions to follow-up with all her physicians outpatient.
Discharge Plan
-
Patient Disposition: Home with Home Care
Discharge Diagnosis/Procedures: Intermittent NSVT/VT
Suspect acute on chronic CHF with preserved EF
Paroxysmal atrial fibrillation
Condition: Fair
Diet: Low Cholesterol and Diabetic, Carb Controlled
Activity: As tolerated
Driving Restrictions: As prior to admission
Blood Work: BMP next week with primary care provider
Activity Restrictions/Additional Instructions:
Stop Mounjaro
Referrals:
[facility] Vis[facility] Nurse [Outside]
Radha Taylor MD [Family Provider, Family Practice] - in less than 1 week
Swapnil Veronica MD [Active, Cardiology] - 07/30/25 2:20 pm
Prescriptions:
New
polyethylene glycol 3350 17 gram Powder In Packet
17 g PO DAILY Qty: 0 0RF
metoprolol succinate 50 mg Tablet Extended Release 24 Hr
50 mg PO DAILY Qty: 30 0RF
furosemide 20 mg Tablet
20 mg PO DAILY Qty: 30 0RF
Jardiance 10 mg tablet
10 mg PO DAILY Qty: 30 0RF
Continued
gabapentin 300 mg Capsule
600 mg PO HS
famotidine [Pepcid] 20 mg Tablet
40 mg PO HS
Xarelto 20 mg Tablet
20 mg PO QPM Qty: 30 0RF
atorvastatin 10 mg tablet
10 mg PO DAILY
omeprazole 20 mg capsule,delayed release(DR/EC)
20 mg PO DAILY
mirabegron [Myrbetriq] 50 mg tablet extended release 24 hr
50 mg PO DAILY
acetaminophen [Pain Relief ES (acetaminophen)] 500 mg tablet
1,000 mg PO [id number] PRN (Reason: mild pain)
colchicine 0.6 mg tablet
0.6 mg PO BID
tramadol 50 mg tablet
50 mg PO Q6H PRN (Reason: mild pain)
spironolactone 25 mg tablet
12.5 mg PO DAILY
gabapentin 300 mg capsule
300 mg PO DAILY
duloxetine 30 mg capsule,delayed release(DR/EC)
30 mg PO HS
Ubrelvy 100 mg tablet
100 mg PO DAILY
Held
metformin 500 mg Tablet
1,000 mg PO BIDWMEAL
Hold Instructions: Restart when okay with your stave block splitter
repaglinide 0.5 mg tablet
0.5 mg PO TIDWMEAL
Hold Instructions: Restart when okay with your stave block splitter
Discontinued
losartan 25 mg Tablet
25 mg PO HS
metoprolol succinate 25 mg tablet extended release 24 hr
12.5 mg PO BID
Discharge Orders:
Discharge Patient (As Directed); Ordered 07/04/25
Ordered By: Juanpablo Guadalupe
Care Plan Goals
Care Plan Goals:
Problem: Readiness for enhanced knowledge related to diagnosis and treatment plan
Goal: Understand your diagnosis and treatment plan needs, including medications if applicable.
Instructions: Know your diagnosis, underlying causes and treatment plan options, including medications if applicable. Consult with your health care team to learn about your diagnosis and treatment plan, including medications if applicable.
Discharge Date and Time
Discharge Date/Time: 07/04/25 14:35
Print Language: [place]
[2025-07-04 11:14] VITALS: BP 114/75
[2025-07-04 12:01] LABS: Glucose - Point of Care 103 mg/dl (70-99)
== END 2025-07-04 14:35 | disposition home health service (06) | DRG 308 ==
LOC: IVU 20:18
PROVIDERS: Clinical Nurse Specialist Family Health; ADMITTING PHYSICIAN Internal Medicine; ATTENDING PHYSICIAN Internal Medicine; EMERGENCY PHYSICIAN Student in an Organized Health Care Education/Training Program; FAMILY PHYSICIAN Family Medicine; OTHER PHYSICIAN Internal Medicine Cardiovascular Disease
DX: I47.20 Ventricular tachycardia, unspecified (principal); I50.33 Acute on chronic diastolic (congestive) heart failure; I13.0 Hypertensive heart and chronic kidney disease with heart failure and stage 1 through stage 4 chronic kidney disease, or unspecified chronic kidney disease; I95.9 Hypotension, unspecified; N18.32 Chronic kidney disease, stage 3b; I47.10 Supraventricular tachycardia, unspecified; I48.0 Paroxysmal atrial fibrillation; I44.2 Atrioventricular block, complete; E11.22 Type 2 diabetes mellitus with diabetic chronic kidney disease; E11.40 Type 2 diabetes mellitus with diabetic neuropathy, unspecified; G25.81 Restless legs syndrome; E78.5 Hyperlipidemia, unspecified; K21.9 Gastro-esophageal reflux disease without esophagitis; M10.9 Gout, unspecified; M26.629 Arthralgia of temporomandibular joint, unspecified side; Z79.01 Long term (current) use of anticoagulants; Z79.899 Other long term (current) drug therapy; Z87.11 Personal history of peptic ulcer disease; Z95.0 Presence of cardiac pacemaker; Z95.2 Presence of prosthetic heart valve
CPT/HCPCS: 71046; 80048; 80053; 80061; 82962; 83036; 83735; 83880; 84443; 84484; 85025; 87502; 93005; 93306; 97116; 97163; 99285; Q9950